=== PATIENT | female | born 1970 | race Caucasian/White ===

== ENCOUNTER 2018-11-30 15:21 | Inpatient (IN) | payer MEDICAID ==
[~2018-11-30] VITALS: Ht 154.9 cm; Wt 68.0 kg
[2018-11-30 15:43] VITALS: BP 95/61
[2018-11-30] MEDS ORDERED: ACETAMINOPHEN EXTRA STRENGTH 500 MG TAB PO ONE (15:50)
[2018-11-30] MEDS ORDERED: ACETAMINOPHEN EXTRA STRENGTH 500 MG TAB ONE (16:00)
[2018-11-30] MEDS ORDERED: NACL 0.9% 2,000 ML IV SCH (17:12)
[2018-11-30] MEDS ORDERED: VANCOMYCIN 1,000 MG in DEXTROSE 5% 250 ML IV ONE (17:15)
[2018-11-30] MEDS ORDERED: LEVOFLOXACIN 500 MG/D5W PREMIX 100 ML IV ONE (17:15)
--- NOTE | 2018-11-30 17:19 | NUR ---
C/O FEVER, N/V/D , AND COUGH X4 DAYS, 10/10 ACHING PAIN AT THIS TIME THROUGHOUT ENTIRE BODY . ADVENTITIOUS LUNG SOUNDS ON AUSCULTATION.SKIN IS PINK/WARM/DRY; AAOX4 WITH EVEN AND STEADY GAIT; HEART RATE EVEN WITH MILD TACHYCARDIA; 02 SAT 80, PT PLACED ON 5LPM NC RESULTING IN 02 SAT 96%.PATIENT POSITIONED FOR COMFORT; HOB ELEVATED; BEDRAILS UP X1; BED DOWN. ER MD MADE AWARE OF PT STATUS.
--- NOTE | 2018-11-30 17:30 | NUR ---
1st blood culture collected
--- NOTE | 2018-11-30 17:45 | NUR ---
2nd blood culture drawn
[2018-11-30] MEDS ORDERED: VANCOMYCIN 1,000 MG VIAL ONE (17:50)
--- NOTE | 2018-11-30 18:00 | NUR ---
OFFERED PT BEDPAN, PT VOID 400 CC
[2018-11-30 18:08] LABS: HEMATOCRIT 39.4 % (36-48); HEMOGLOBIN 13.2 g/dL (12.0-16.0); MEAN CORPUSCULAR HEMOGLOBIN 31 pg (27-31); MEAN CORPUSCULAR HGB CONC 34 g/dL (33-37); MEAN CORPUSCULAR VOLUME 92.2 fL (80-94); PLATELET COUNT (AUTO) 290 K/uL (140-450); RED BLOOD CELL COUNT(AUTO) 4.28 MIL/uL (4.20-5.40); WHITE BLOOD COUNT (AUTO) 10.5 K/uL (4.8-10.8)
[2018-11-30 18:16] LABS: ACETONE, SERUM NEGATIVE (NEGATIVE)
[2018-11-30 18:21] LABS: ANION GAP 13.5 (8-16); CARBON DIOXIDE 24.8 mmol/L (21-32); CREATININE 0.9 mg/dL (0.6-1.3); POTASSIUM 3.3 mmol/L (3.5-5.1)
[2018-11-30 18:24] LABS: PROTHROMBIN TIME 10.7 secs (10.8-13.4)
[2018-11-30 18:25] LABS: MAGNESIUM 1.5 mg/dL (1.8-2.4)
[2018-11-30 18:27] LABS: ALBUMIN 2.3 g/dL (3.4-5.0); TOTAL BILIRUBIN 0.6 mg/dL (0.0-1.0)
[2018-11-30 18:28] LABS: LYMPHOCYTES % (MANUAL) 9 % (20-46); MONOCYTES % (MANUAL) 4 % (5-12)
[2018-11-30] MEDS: NACL 0.9% 1,000 ML IV SCH (18:45)
[2018-11-30] MEDS ORDERED: ZOLPIDEM 5 MG TAB PO PRN (18:45)
[2018-11-30] MEDS ORDERED: MORPHINE SULFATE 2 MG/ML SYR IVP PRN (18:45)
[2018-11-30] MEDS ORDERED: VANCOMYCIN PER PHARMACY MC PRN (18:50)
[2018-11-30] MEDS ORDERED: SYN.075 PO (19:36)
[2018-11-30] MEDS ORDERED: MONT10TA35 PO (19:36)
[2018-11-30] MEDS ORDERED: GABA400C PO (19:36)
[2018-11-30] MEDS ORDERED: DULO60EC PO (19:36)
--- NOTE | 2018-11-30 19:45 | NUR ---
RECEIVED REPORT FROM KAREN HAYNES DAYSHIFT NURSE AT BEDSIDE FOR CONTINUITY OF CARE, PT IN STABLE CONDITION. PT TRANSFERRED TO FLOOR VIA GURNEY AND WAS TRANSFERRED TO ROOM 120B. PT IS AOX4 AND IS ON 15 LITERS REBREATHER MASK. SKIN INTACT, PT C/O GENERALIZED WEAKNESS. SHE IS ABLE TO AMBULATE WITH ASSIST. SIDE RAILS X2 AND PT PLACED ON FALLS PRECAUTIONS. V/S FOLLOWS T 97.5 P 111 R 18 B/P 114/69 02 97% ON REBREATHER. PT HAS HX OF ASTHMA, THYROIDECTOMY, GALLBLADDER REMOVAL AND TUBAL LIGATION. PT LUNG SOUNDS COARSE AND DIMINISHED. B/S ACTIVE. HOB UP 45% AND IV SITE 20G ON RIGHT AC. INTACT AND BOLUS FINISHING UP.
--- NOTE | 2018-11-30 19:47 | NUR ---
Patient will be admitted to care of KARLENE. Admited to TELE 120B. Belongings list completed. PATIENT A&O X4 AND AMBULATED TO BED. Report GIVEN to KARLENE.
[2018-11-30] MEDS ORDERED: POTASSIUM CHLORIDE 10 MEQ TABER PO SCH (20:00)
[2018-11-30] MEDS ORDERED: MAG SULF 2000 MG/WATER PREMIX 100 ML IV SCH (20:00)
[2018-11-30 20:05] LABS: MAGNESIUM 1.5 mg/dL (1.8-2.4); PHOSPHORUS 1.9 mg/dL (2.5-4.9); THYROID STIMULATING HORMONE 21.13 uIU/mL (0.34-3.74)
[2018-11-30] MEDS ORDERED: MIRT15TA PO (20:15)
[2018-11-30] MEDS: ALBUTEROL SULFATE/IPRATROPIU 3 ML SOL IH PRN (20:25)
[2018-11-30] MEDS: LORazepam 2 MG/ML VIAL IM/IVP PRN (20:44)
--- NOTE | 2018-11-30 21:00 | NUR ---
SPUTUM CULTURE COLLECTED. NACL ORDERED AT 60MLS/HR. PT GIVEN K DUR 40MEQ AND MAG RIDER. CONSENT SIGNED FOR ANGIOGRAM OF CHEST WITH AND WITH OUT CONTRAST.
[2018-11-30] MEDS: MIRTAZAPINE 15 MG TAB PO SCH (21:28)
[2018-11-30] MEDS: PROMETH/CODEINE 6.25-10MG/5ML 5 ML UDC PO PRN (21:29)
--- NOTE | 2018-11-30 21:30 | NUR ---
RT AT BEDSIDE, EVALUATING PT. PT GIVEN NEB TREATMENT AND PLACED ON 10 LITERS OXYMIZER, AND TO KEEP PT STATING AT 88-92%.
--- NOTE | 2018-11-30 22:00 | NUR ---
PT TRANSPORTED FOR ANGIO GRAM AND HAS RETURNED AWAITING RESULTS OF TEST.
[2018-11-30] MEDS ORDERED: VANCOMYCIN 500 MG in NACL 0.9% 100 ML IV SCH (22:30)
[2018-11-30] MEDS ORDERED: VANCOMYCIN 500 MG VIAL ONE (23:43)
[2018-12-01] VITALS (84 sets, daily range): BP systolic 82–174; BP diastolic 31–121
[2018-12-01] MEDS: ALBUTEROL SULFATE/IPRATROPIU 3 ML SOL IH PRN (00:27)
--- NOTE | 2018-12-01 01:00 | NUR ---
Called to bedside to check patient desaturating, found patient tachycardic with spo2 87% on 10lpm oximizer, gave prn hhn tx and increased to 12 lpm oximizer, spo2 88%. coarse rales on right lobe, pt sleeping now, Dr Rodriguez aware of patient status, no new orders at this time, will cont to monitor.
[2018-12-01] MEDS ORDERED: NACL 0.9% 1,000 ML IV ONE ×3 (02:25→11:00)
[2018-12-01] MEDS: MORPHINE SULFATE 2 MG/ML SYR IVP PRN ×2 (02:33→07:49)
[2018-12-01] MEDS: LORazepam 2 MG/ML VIAL IM/IVP PRN ×2 (02:55→14:43)
[2018-12-01 03:04] LABS: BILIRUBIN,URINE NEGATIVE (NEGATIVE); BLOOD, URINE NEGATIVE (NEGATIVE); COLOR,URINE YELLOW (YELLOW); LEUKOCYTE ESTERASE ,URINE NEGATIVE (NEGATIVE); NITRITE, URINE NEGATIVE (NEGATIVE); UGLUCOSE NEGATIVE (NEGATIVE)
[2018-12-01] MEDS ORDERED: LEVOTHYROXINE SODIUM 100 MCG VIAL IV SCH (03:05)
[2018-12-01 03:09] LABS: APPEARANCE,URINE SLIGHTLY HAZY (CLEAR)
[2018-12-01 03:10] LABS: RBC,URINE 0-5 /HPF (0-5)
[2018-12-01 03:11] LABS: BARBITURATE, URINE NEGATIVE ng/ml (NEG <=200); BENZODIAZEPINE, URINE NEGATIVE ng/mL (NEG <=200); CANNABINOID, URINE NEGATIVE ng/mL (NEG <=50); COCAINE, URINE NEGATIVE ng/mL (NEG <=300)
[2018-12-01 03:12] LABS: OPIATE, URINE NEGATIVE ng/mL (NEG <=2000); PHENCYCLIDINE SCREEN,URINE NEGATIVE ng/mL (NEG <=25)
--- NOTE | 2018-12-01 03:25 | NUR ---
PT PLACED ON BIPAP DUE TO INCREASED WOB AND SPO2 DECREASING TO 85%. BIPAP SETTINGS 10/5, R10 AND FIO2 60%. BIPAP ALARMS ON AND FUNCTIONING. PROTECTA GEL PLACED UNDER MASK FOR SKIN PROTECTION. PHYSICIAN MADE AWARE OF PT STATUS AND BIPAP SETTINGS. WILL CONTINUE TO MONITOR.
[2018-12-01] MEDS ORDERED: LEVOTHYROXINE 0.075 MG TAB PO SCH (03:50)
--- NOTE | 2018-12-01 04:01 | NUR ---
PT REMOVED FROM BIPAP PER DUE TO PT BECOMING AGITATED, ANXIOUS AND NOT TOLERATING BIPAP. PLACED ON NRB PHYSICIAN AWARE. PT STATES SHE DOES NOT WANT TO WEAR BIPAP ANYMORE. WILL CONTINUE TO MONITOR.
[2018-12-01] MEDS: LEVOTHYROXINE 0.075 MG TAB PO SCH (04:04)
--- NOTE | 2018-12-01 04:06 | NUR ---
SYNTHRIOID 0.075MG STAT ADMINISTERED PER DR. ALVARADO ORDER.
[2018-12-01] MEDS ORDERED: LORazepam 2 MG/ML VIAL IM/IVP PRN ×2 (04:10→17:40)
[2018-12-01] MEDS ORDERED: KETOROLAC 30 MG/ML VIAL IM PRN (04:40)
[2018-12-01] MEDS ORDERED: DILTIAZEM 25 MG/5 ML VIAL IVP ONE ×2 (04:45→05:00)
[2018-12-01] MEDS: ACETAMINOPHEN 325 MG TAB PO PRN ×3 (04:49→22:48)
--- NOTE | 2018-12-01 05:00 | NUR ---
PT BECAME VERY AGITATED AND WANTED TO GO HOME , SHE STARTED TAKING OFF MASK AND WAS TALKING ABOUT CALLING HER SOON TO PICK HER UP. PT V/S FOLLOWS T 105 B/P P 158 R 40 02 83% ON ROOM AIR. SON CALLED AND HE SPOKE WITH MOM AND DOCTOR AND TOLD HIS MON THAT SHE SHOULD STAY AND RECEIVE TXTMENT. PT VERBALIZED UNDERSTANDING, BUT CONTINUED TO REFUSE 02. PT WAS GIVEN TYLENOL 650 MG AND TORADOL IVP, PT REFUSED COOLING MEASURES. PT GIVEN CARDIZEM FOR INCREASED HEART RATE. PT ASSIST TO TOILET, SHE CONTINUE TO REFUSE SUPPLIMETAL 02.0 STAFF AT BEDSIDE ASSISTING HER, TO KEEP 02 ON
--- NOTE | 2018-12-01 05:20 | NUR ---
PT TRANSFERRED TO ICU FOR CLOSER MONITORING. REPORT GIVEN TO ICU STAFF NURSE AT BEDSIDE FOR CONTINUITY OF CARE .
[2018-12-01] MEDS ORDERED: diphenhydrAMINE 50 MG/ML VIAL IVP ONE (05:25)
[2018-12-01] MEDS ORDERED: ETOMIDATE 20 MG/10 ML VIAL IVP ONE ×2 (05:25→09:49)
[2018-12-01] MEDS ORDERED: HALOPERIDOL IM 5 MG/ML VIAL IM ONE (05:25)
[2018-12-01] MEDS ORDERED: LORazepam 2 MG/ML VIAL IM/IVP ONE (05:25)
--- NOTE | 2018-12-01 05:31 | NUR ---
PT ARRIVE IN ICU 0520 [address]SPELTIE AND MST [place] SOLER AT BEDSIDE. PT CONFUSED/AGITATED UPON ARRIVAL. DOES NOT FOLLOW COMMANDS.PT IS ON OXYGEN/NON-REBREATHER MASK. RR 40, BP 141/88, HR IN 137-140'S. PT ABLE TO TRANSFER HERSELF TO ICU BED. DR ALVARADO AND DR GUNTER AT BEDSIDE TO INTUBATE.
[2018-12-01] MEDS ORDERED: SUCCINYLCHOLINE CHLORIDE 200 MG/10 ML VIAL IVP ONE ×2 (05:35→09:50)
[2018-12-01] MEDS ORDERED: HALOPERIDOL IM 5 MG/ML VIAL ONE (05:37)
[2018-12-01] MEDS: PROPOFOL 1000 MG/100 ML PREMIX 100 ML IV PRN ×4 (05:40→22:49)
--- NOTE | 2018-12-01 05:40 | NUR ---
ASSISTED DURING INTUBATION. PT INTUBATED WITH A 7.5 ETT AND SECURED @23 TEETH/GUMS. ETT PLACEMENT CONFIRMED WITH CAPNOGRAPHY AND BILATERAL BREATH SOUNDS. WILL FOLLOW UP WITH CXR. PT TO BE PLACED ON VENT SETTINGS AC 12, VT 450, PEEP 5 AND FIO2 100%.
[2018-12-01] MEDS ORDERED: PROPOFOL 1000 MG/100 ML PREMIX 100 ML IV ONE (05:47)
[2018-12-01] MEDS ORDERED: VANCOMYCIN 500 MG in NACL 0.9% 100 ML IV SCH (06:00)
[2018-12-01] MEDS: ALBUTEROL SULFATE/IPRATROPIU 3 ML SOL IH SCH ×3 (06:00→18:42)
--- NOTE | 2018-12-01 06:00 | NUR ---
DR. CORTEZW AT BEDSIDE TO INTUBATE, RT AT BEDSIDE TO GIVE GIVING RESCUE BREATHES AND PROVIDING UP SUCTION. (0529)[id number] 20MG GIVEN TO IVP TO RIGHT AC, (0532) 20MG SUCCHYCHOLINE GIVEN IVP, (0534) INTUBATION COMPLETED AND XRAY PRESENT AT HUNTER (0540) PT STARTED ON PROPOFOL DRIP AND XRAY PRESENT AT BEDSIDE TO CONFIRM PLACEMENT. 2MG ATIVAN GIVEN IVP. (0550) NEW 20 GAUGE PIV ON RIGHT WRIST INSERTED INFUSING NS AT 90CC/HR. PT ON TRACH TO VENT UGT2=651%, RX=003, RR=12, FLOW 40L/MIN, PEEP=5. ST ON DESIGN AGENT, HR 120-130, SKIN IS INTACT/NORMAL IN COLOR. BOWEL SOUND ACTIVE X4, NO GT IN PLACE. HOB ELEVATED ABOVE 30 DEG, PT 1 EPISODE VOIDING, UNABLE TO MEASURE, NO GT, NO CHANDLER IN PLACE. NO BM AT THIS TIME. DRY WEIGHT FOR PROPOFOL DRIP : 57kg.
--- NOTE | 2018-12-01 06:19 | NUR ---
ETT REMAINS SECURE WITH A PATENT AIRWAY. VENT ALARMS ON AND FUNCTIONING.
--- NOTE | 2018-12-01 06:20 | NUR ---
rec'd pt on carescape vent settings ac12 vt450 peep 5 fio2 100% alarms on and audible and ambu bag is at side of vent and vent is plugged into red outlet, no hhn given due to high heart of 127 b\s are coarse bilaterally and sxn pt no return of secretions, pt is orally intubated with 7.5 et tube secured with anchor fast at 23 cm at lip in midline pt is sedated.
--- NOTE | 2018-12-01 06:31 | NUR ---
CALLED HER SON ANANDA HARRY AT [phone] AND LEFT MESSAGE FOR HIM THAT WE TRANSFER HIS MOM TO ICU UNIT BED 2.
[2018-12-01] MEDS: NACL 0.9% 1,000 ML IV SCH ×2 (06:58→20:14)
[2018-12-01 07:03] LABS: BASOPHILS % (AUTO) 0.4 % (0.0-2.0); HEMATOCRIT 35.4 % (36-48); HEMOGLOBIN 11.9 g/dL (12.0-16.0); LYMPHOCYTES # (AUTO) 0.4 K/uL (2.5-16.5); LYMPHOCYTES % (AUTO) 4.8 % (20.5-51.1); MEAN CORPUSCULAR HEMOGLOBIN 31 pg (27-31); MEAN CORPUSCULAR HGB CONC 34 g/dL (33-37); MEAN CORPUSCULAR VOLUME 91.6 fL (80-94); MONOCYTES # (AUTO) 0.3 K/uL (0.8-1.0); MONOCYTES % (AUTO) 2.7 % (1.7-9.3); NEUTROPHILS # (AUTO) 8.5 K/uL (1.8-7.7); NEUTROPHILS % (AUTO) 92.1 % (42.2-75.2); PLATELET COUNT (AUTO) 275 K/uL (140-450); RED BLOOD CELL COUNT(AUTO) 3.86 MIL/uL (4.20-5.40); RED CELL DISTRIBUTION WIDTH 14.7 % (11.6-13.7); WHITE BLOOD COUNT (AUTO) 9.3 K/uL (4.8-10.8)
[2018-12-01] MEDS ORDERED: POTASSIUM PHOSPHATE 15 MM in NACL 0.9% 250 ML IV ONE (07:15)
[2018-12-01] MEDS ORDERED: VANCOMYCIN PER PHARMACY MC PRN (07:20)
--- NOTE | 2018-12-01 07:20 | NUR ---
GAVE BEDSIDE REPORT TO MORNING SHIFT GONZÁLEZ HAYNES. Addendum: 12/01/18 at 0753 by Roselyn Menesse RN ENDORSED CELLPHONE AT BEDSIDE AND BELONGING TO MORNING SHIFT GONZÁLEZ HAYNES.
--- NOTE | 2018-12-01 07:21 | NUR ---
RECEIVED REPORT FROM NIGHT RN. PATIENT JUST INTUBATED AND ON SOFT RESTRAINTS BILATERAL WRISTS. PATIENT'S FAMILY MADE AWARE OF THESE UPDATES BY PHONE ACCORDING TO NIGHT RN(ABDIAS) REPORT
[2018-12-01] MEDS: COMMUNICATION ORDER MC SCH (07:30)
--- NOTE | 2018-12-01 07:30 | NUR ---
RECEIVED REPORT FROM NIGHT RN. PATIENT INTUBATED 7.5 23 IN THE LIP ON MECHANICAL VENTILATOR AC 12 FIO2 100% TIDAL VOLUME 450, PEEP 5, ON DIPRIVAN RUNNING AT 30 MCG/KG/MIN., WEIGHT ENTERED ON PUMP 57 KGS., SINUS TACHYCARDIA IN THE MONITOR (SEE VITAL SIGNS INTERVENTION), WITH GAUGE 20s AT RIGHT HAND-NORMAL SALINE 90 ML/HR INFUSING AND RIGHT ANTECUBITAL, SKIN INTACT
[2018-12-01 07:33] LABS: ANION GAP 14.3 (8-16); CARBON DIOXIDE 20.1 mmol/L (21-32); CREATININE 0.8 mg/dL (0.6-1.3); POTASSIUM 3.4 mmol/L (3.5-5.1)
--- NOTE | 2018-12-01 07:40 | NUR ---
several attempts to obtain abg were made could not obtain at this time due to low bp
[2018-12-01 07:43] LABS: CHOL/HDL RATIO 3.7 (1-4.5)
--- NOTE | 2018-12-01 07:45 | NUR ---
LEAKING IN THE ET TUBE PER RT GERDA AND ET TUBE NEEDS TO BE CHANGED ACCORDING TO HER. SO2 >90% WILL CONTINUE TO MONITOR
[2018-12-01] MEDS: ONDANSETRON 4 MG/2 ML VIAL IM/IVP PRN (07:48)
--- NOTE | 2018-12-01 08:48 | NUR ---
DR. MCFADDEN AT BEDSIDE. PER DR. MCFADDEN OK TO INCREASE DIPRIVAN TO MAXIMUM PATIENT IS AWAKE WITH VOICE AND REACHES THE TUBE. RECEIVED ORDERS FOR PRE INTUBATION ALSO
--- NOTE | 2018-12-01 08:50 | NUR ---
DR. MCFADDEN REINTUBATED PATIENT. PATIENT ON NS BOLUS 1L DUE TO DECREASED BLOOD PRESSURE(SEE VS INTERVENTIONS) ORDERED BY DR. MCFADDEN
--- NOTE | 2018-12-01 08:51 | NUR ---
AT BEDSIDE TO REINTUBATE PT WITH 7.5 ET TUBE SECURED AT 23 CM AT LIP
[2018-12-01] MEDS ORDERED: GABAPENTIN 100 MG CAP PO SCH (09:00)
--- NOTE | 2018-12-01 09:20 | NUR ---
OG TUBE INSERTION DONE. AUSCULATATED BY 2 RNS ( [facility] ICU CN AND I) AND BOTH VERIFIED IT PATENT
[2018-12-01] MEDS: MONTELUKAST SODIUM 10 MG TAB PO SCH (09:33)
[2018-12-01] MEDS: GABAPENTIN 100 MG CAP PO SCH ×3 (09:34→17:55)
[2018-12-01] MEDS: DULoxetine 30 MG CAPDR PO SCH (09:49)
--- NOTE | 2018-12-01 10:00 | NUR ---
called to icu bed 2 due to pt's o2 sat of 85% i sxn pt small amt of blood tint secretions, called and spoke with him concerning the pt, he said to keep o2 sat 88-90% and if pt continues to desat call when i left pt her o2 sat was 91% darrin deng at bedside
--- NOTE | 2018-12-01 10:20 | NUR ---
DR. GARCIA AT BEDSIDE AND AWARE OF PATIENT'S VITAL SIGNS TRENDS. MAY GIVE 1 LITER NORMAL SALINE BOLUS IV
[2018-12-01] MEDS: MIDAZOLAM MDV 50 MG in NACL 0.9% 40 ML IV PRN ×2 (10:23→18:06)
--- NOTE | 2018-12-01 10:45 | NUR ---
CHANDLER CATHETER INSERTION DONE PER PROTOCOL. ORDER VERIFIED
[2018-12-01] MEDS: VANCOMYCIN 750 MG in DEXTROSE 5% 250 ML IV SCH (12:34)
[2018-12-01] MEDS ORDERED: KCL 20 MEQ/WATER INJ PREMIX 200 ML IV ONE (12:40)
[2018-12-01] MEDS ORDERED: PANTOPRAZOLE 40 MG INJ VIAL IVP SCH (12:47)
--- NOTE | 2018-12-01 13:00 | NUR ---
vent check, sxn pt small amt of blood tint secretions, pt is very irritable at this time
--- NOTE | 2018-12-01 13:30 | NUR ---
DR. ALMENDAREZ, DR. CARMONA INFORMED PATIENT'S CONDITION UNSTABLE FOR CT SCAN AT THIS TIME SO2 88% ON FIO2 100%, LABILE BLOOD PRESSURE AFTE 2L NORMAL SALINE BOLUS, TACHYCARDIC UP TO 130s. HOLD CT HEAD FOR NOW. RT GERDA ALSO IN AGREEMENT AND AWARE
[2018-12-01] MEDS: fentaNYL 1 MG in NACL 0.9% 80 ML IV PRN (13:31)
--- NOTE | 2018-12-01 14:00 | NUR ---
URINE SAMPLE SENT FOR ORDERED TESTS
--- NOTE | 2018-12-01 14:10 | NUR ---
DR. ALMENDAREZ AT BEDSIDE. PER PHYSICIAN OK TO HOLD CT HEAD FOR NOW. PATIENT SO2 88% HEART RATE 130s, ON BILATERAL WRIST RESTRAINTS, DIPRIVAN MAXIMUM RATE AND FENTANYL STARTED, PATIENT THRASHING AND IN BETWEEN TRIES TO SLIDE SOWN IN BED AND PULL THE ET TUBE, PATIENT BEING RE ORIENTED FREQUENTLY. DR. ALMENDAREZ MADE AWARE
--- NOTE | 2018-12-01 14:57 | NUR ---
PAGED DR. MCFADDEN THROUGH HIS EXCHANGE REGARDING: PATIENT'S SATURATION DROPPED
--- NOTE | 2018-12-01 15:01 | NUR ---
DR. MCFADDEN CALLED BACK AND RECEIVED TELEPHONE ORDER TO INCREASE PEEP TO 12-READ BACK AND INFORMED RT GERDA Addendum: 12/01/18 at 1512 by Keira Johnson RN (ADDITIONAL NOTES) [address] MCFADDEN ALSO MADE AWARE THE SATURATION NOW IS 80%. ASKED PHYSICIAN ALSO IF HE WANTS TO CHECK ABG LATER AND "NO" ACCORDING TO PHYSICIAN
--- NOTE | 2018-12-01 16:15 | NUR ---
DR. CARMONA AT BEDSIDE SPOKE WITH DR. MCFADDEN CONCERNING VENT CHANGES INCREASE VT 500 AND PEEP 14
--- NOTE | 2018-12-01 16:25 | NUR ---
DR. CARMONA AT BEDSIDE AND HE UPDATED DR. MCFADDEN OVER THE PHONE OF PATIENT'S CONDITION
[2018-12-01] MEDS ORDERED: FUROSEMIDE 100 MG/10 ML VIAL IV SCH (16:30)
--- NOTE | 2018-12-01 17:00 | NUR ---
DR. CARMONA HERE AND INFORMED ORDERED LASIX NOT YET GIVEN DUE TO: PATIENT'S BP LOW SYSTOLIC IN THE 90s, ALSO IT IS NOT YET VERIFIED BY AFTER HOUR PHARMACY NOT POPPING UPA AND PINK IN THE EMAR AND THIS RN LEFT A MESSAGE IN THEIR VOICE BOX. PER DR. CARMONA PREPARE PATIENT FOR CENTRAL LINE INSERTION. WILL HOLD OFF ON DUE GABAPENTIN CAPSULE FOR NOW
[2018-12-01] MEDS: SCOPOLAMINE 1.5 MG/72 HR PATCH TD SCH (17:56)
--- NOTE | 2018-12-01 18:00 | NUR ---
DR. CARMONA ATTEMPTED TO CALL PATIENT'S SON ANANDA TO GET CONSENT FOR CENTRAL LINE INSERTION BUT NO ANSWER. DR. CARMONA LEFT A MESSAGE IN THE VOICE BOX
[2018-12-01 18:46] LABS: HEMATOCRIT 34.1 % (36-48); HEMOGLOBIN 11.5 g/dL (12.0-16.0); MEAN CORPUSCULAR HEMOGLOBIN 31 pg (27-31); MEAN CORPUSCULAR HGB CONC 34 g/dL (33-37); MEAN CORPUSCULAR VOLUME 91.6 fL (80-94); PLATELET COUNT (AUTO) 255 K/uL (140-450); RED BLOOD CELL COUNT(AUTO) 3.73 MIL/uL (4.20-5.40); RED CELL DISTRIBUTION WIDTH 14.9 % (11.6-13.7); WHITE BLOOD COUNT (AUTO) 7.6 K/uL (4.8-10.8)
[2018-12-01 18:52] LABS: ANION GAP 10.7 (8-16); CREATININE 0.7 mg/dL (0.6-1.3); POTASSIUM 4.7 mmol/L (3.5-5.1)
--- NOTE | 2018-12-01 18:57 | NUR ---
Received pt on vent support at documented settings, suctioned scant amount of thick brown secretions, hhn tx given, tolerated well, no resp distress or SOB noted at this time, 7.5 ETT secured at 24 cm at the lip, alarms set and audible, vent plugged into red outlet, ambu bag at bedside, cont pulse ox on, will cont to monitor.
--- NOTE | 2018-12-01 19:05 | NUR ---
INFORMED DR. HAGER THAT LASIX STILL NOT GIVEN IT IS NOT VERIFIED BY PHARMACY YET AND BP ALSO LOW, NS 70 CC/HR. PER DR. BABCOCK AND NEEDS ORDER
--- NOTE | 2018-12-01 19:30 | NUR ---
CHARGE NURSE, STAR, CONTACT FAMILY MEMBERS OF PT/CHILDREN (ANANDA AND ARMANDO) UPDATED ON PATIENT CONDITION AND RECEIVED VERBAL TELEPHONE CONSENT TO PERFORM CENTRAL LINE, ENDORSED TO DR. ALVARADO TO FOLLOW-UP WITH FAMILY REGARDING PROCEDURE.
--- NOTE | 2018-12-01 19:35 | NUR ---
RECEIVED BEDSIDE REPORT FROM [place] CLAUDIO. PT IS NONVERBAL/VENTILATED AT THIS TIME. DOES NOT OPENS EYES SPONTANEOUSLY. PUPILS 2MM, SLUGGISH. TEMP 99.8, AT THIS TIME. BP 108/61, BP=589, SATING 91%, RR=24. LUNG SOUNDS COARSE ON UPPER LOBES. ETT TO VENT, HY76=646%, JC=724, RR=12, FLOW=40L/MIN, PEEP=14,PMAX=55. OGT IN PLACE, NO FEEDINGS AT THIS TIME. BOWEL SOUND HYPO ACTIVE X4. CHANDLER CATH IN PLACE, URINE IS ELLEN IN COLOR. SKIN IS INTACT, NORMAL IN COLOR. PT HAS RIGHT WRIST 20 GAUGE PIV, RIGHT AC 20 GAUGE PIV INFUSING FENTANYL ( 28MCG/HR), VERSED (5MG/HR) AND PROPOPFOL (35MCG/MIN), AND LEFT HAND 20 GAUGE PIV. NS INFUSING AT 70CC/HR. SCDS ON BILATERAL LEGS. HOB ABOVE 30 DEG, RESTRAINTS ON BILATERAL WRISTS. Addendum: 12/02/18 at 0014 by Roselyn Meneses RN DRY WEIGHT IS 57kg, FOR TITRATION OF PROPOFOL.
--- NOTE | 2018-12-01 19:45 | NUR ---
CALL PATIENT DAUGHTER ESTRADA LINDSAY , OBTAIN THEB CONSENT FOR CENTRAL LINE INSERTION.
--- NOTE | 2018-12-01 20:00 | NUR ---
THE SON ANANDA HARRY CALL TO CHECK PT. CONDITION. HE AWARE THAT THE PATIENT WILL HAVE CENTRAL LINE PLACEMENT.
[2018-12-01] MEDS ORDERED: LORazepam 2 MG/ML VIAL IVP SCH (21:00)
[2018-12-01] MEDS ORDERED: HYDROmorphone 1 MG/ML AMP IVP SCH (21:00)
[2018-12-01] MEDS: MIRTAZAPINE 15 MG TAB PO SCH (21:00)
[2018-12-01] MEDS: methylPREDNISolone SS 125 MG/2 ML VIAL IVP SCH (21:19)
[2018-12-01 21:44] LABS: LYMPHOCYTES % (MANUAL) 4 % (20-46); MONOCYTES % (MANUAL) 1 % (5-12)
--- NOTE | 2018-12-01 22:02 | NUR ---
2150 ULTRASOUND AT BEDSIDE TO ASSIST IN CENTRAL LINE PLACEMENT TO RIGHT IJ TRIPLE LUMEN CATH. STERILE TECHNIQUE MAINTAINED. 2202 CENTRAL LINE INSERTED.
--- NOTE | 2018-12-01 22:22 | NUR ---
DR ALVARADO AT BEDSIDE, VERBAL ORDER TO HOLD REMERON (INDICATED SLEEP MED) AND HEPARIN SUQ 5000, PT CURRENTLY HAS SCDS ON BILATERAL LEGS, NO SIGNS OF DVT AT THIS TIME.
--- NOTE | 2018-12-01 22:24 | NUR ---
CENTRAL LINE HAS BEEN INSERTED, XRAY AT BEDSIDE TO CONFIRM PLACEMENT.
--- NOTE | 2018-12-01 22:50 | NUR ---
TEMP 101.0 TEMPORAL SCAN, TYLENOL GIVEN AT THIS TIME.
[2018-12-02] VITALS (101 sets, daily range): BP systolic 88–106; BP diastolic 33–69
--- NOTE | 2018-12-02 | NUR ---
TEMP 98.3: REASSESSED AFTER TYLENOL AND ICE PACK GIVEN TO PT.
[2018-12-02] MEDS: VANCOMYCIN 750 MG in DEXTROSE 5% 250 ML IV SCH ×3 (00:09→20:19)
--- NOTE | 2018-12-02 03:33 | NUR ---
BED BATH, CHANDLER CATH, VAP CARE PROVIDED TO PT AT BEDSIDE, RASS -3. REPOSITIONED AND ELEVATED HOB.
[2018-12-02] MEDS ORDERED: MAG SULF 2000 MG/WATER PREMIX 100 ML IV SCH (04:00)
[2018-12-02] MEDS: methylPREDNISolone SS 125 MG/2 ML VIAL IVP SCH ×3 (04:06→20:20)
[2018-12-02] MEDS: MIDAZOLAM MDV 50 MG in NACL 0.9% 40 ML IV PRN (04:08)
--- NOTE | 2018-12-02 05:29 | NUR ---
ANGEL FROM LAB AT BEDSIDE TO SEE PT, RT AT BEDSIDE TO COLLECT SPUTUM, PT HAS MINIMAL SPUTUM OUTPUT AT THIS TIME.
--- NOTE | 2018-12-02 05:38 | NUR ---
NO BM, URINE IS CLOUDY, DARK ELLEN IN COLOR, 450ML OUTPUT Q SHIFT.
[2018-12-02] MEDS: ALBUTEROL SULFATE/IPRATROPIU 3 ML SOL IH SCH ×3 (06:24→19:24)
--- NOTE | 2018-12-02 06:24 | NUR ---
REC'D PT ON CARESCAPE VENT SETTING AC 12 VT 500 PEEP 14 FIO1 100% ALARMS ON AND AUDIBLE AMBU BAG IS AT SIDE OF VENT AND VENT IS PLUGGED INTO RED OUTLET, I\L TX GIVEN WITH DUONEB 3ML WITH NO ADVERSE REACTION POST TX B\S ARE COARSE BILATERALLY AND SXN PT SCAN AMT OF BROWN SECRETIONS, PT IS ORALLY INTUBATED WITH 7.5 ET TUBE AT 24CM SECURED WITH ANCHOR FAST AND SKIN INTEGRITY IS INTACT PT IS SLEEPING
[2018-12-02] MEDS: LEVOTHYROXINE 0.075 MG TAB PO SCH (06:52)
[2018-12-02 06:58] LABS: ANION GAP 11.7 (8-16); CARBON DIOXIDE 21.9 mmol/L (21-32); CREATININE 0.6 mg/dL (0.6-1.3); POTASSIUM 4.6 mmol/L (3.5-5.1)
[2018-12-02] MEDS: COMMUNICATION ORDER MC SCH (07:00)
--- NOTE | 2018-12-02 07:00 | NUR ---
PT IS SEDATED WITH RASS -4, NO S/S OF DISTRESS, D/C PROPOFOL AT THIS TIME, WILL CONTINUE TO MONITOR.
[2018-12-02 07:01] LABS: BASOPHILS % (AUTO) 0.1 % (0.0-2.0); HEMOGLOBIN 11.3 g/dL (12.0-16.0); LYMPHOCYTES # (AUTO) 0.7 K/uL (2.5-16.5); LYMPHOCYTES % (AUTO) 9.4 % (20.5-51.1); MEAN CORPUSCULAR HEMOGLOBIN 31 pg (27-31); MEAN CORPUSCULAR HGB CONC 33 g/dL (33-37); MEAN CORPUSCULAR VOLUME 92.2 fL (80-94); MONOCYTES # (AUTO) 0.2 K/uL (0.8-1.0); MONOCYTES % (AUTO) 2.1 % (1.7-9.3); NEUTROPHILS # (AUTO) 6.7 K/uL (1.8-7.7); NEUTROPHILS % (AUTO) 88.4 % (42.2-75.2); PLATELET COUNT (AUTO) 241 K/uL (140-450); RED BLOOD CELL COUNT(AUTO) 3.69 MIL/uL (4.20-5.40); RED CELL DISTRIBUTION WIDTH 15.5 % (11.6-13.7); WHITE BLOOD COUNT (AUTO) 7.6 K/uL (4.8-10.8)
--- NOTE | 2018-12-02 07:15 | NUR ---
RECEIVED REPORT FROM ESCROW CLERK NURSE AT BEDSIDE, PT IS SEDATED, RASS -4, AWARE. VSS, FLACC 0, CENTRAL LINE TO RIJ, TLC, FLUSHED WITH GOOD BLOOD RETURN. ETT TO VENT SETTING WITH FIO2 100, TV 500, R 12, PEEP 14, O2 SAT 98%, CLEAR LUNG SOUND MARGOT. SR ON MEDICAL OFFICE CLERK, SOFT ABDOMEN WITH HYPOACTIVE BOWEL SOUNDS, OGT IN PLACE WITH 10ML RESIDUALS, F/C IN PLACE WITH CLEAR YELLOW URINE VIA GRAVITY, GENERALIZED WEAKNESS TO ALL EXTREMITIES, SCD TO BLE. SKIN IS INTACT, WARM AND DRY TO TOUCH, IV SITE TO RIGHT AC, 20GA, RUNNING VERSED AT 5MG/HR AND FENTANYL AT 28MCG/HR, SL TO RIGHT HAND, 20GA, IV SITE TO LEFT HAND, RUNNING NS AT 70ML/HR. HOB ELEVATED TO 30 DEGREES, SAFETY MEASURES IN PLACE, WILL CONTINUE TO MONITOR.
[2018-12-02] MEDS ORDERED: ALBUTEROL SULFATE/IPRATROPIU 3 ML SOL IH PRN (07:24)
--- NOTE | 2018-12-02 08:00 | NUR ---
PT IS ON SEDATION, RASS -3, NOT FULLING TUBES, OFF RESTRAINS AT THIS TIME. ORAL CARE PROVIDED, POSITION CHANGED FOR OFF LOAD PRESSURE.
--- NOTE | 2018-12-02 08:06 | NUR ---
DR. REAVES CAME IN TO SEE PT AT BEDSIDE, NO NEW ORDER AT THIS TIME.
--- NOTE | 2018-12-02 08:37 | NUR ---
PATIENT HAS BEEN SCREENED AND CATEGORIZED HIGH NUTRITION RISK. PATIENT WILL BE SEEN WITHIN 1-2 DAYS OF ADMISSION. 12/02/[address]
--- NOTE | 2018-12-02 08:40 | NUR ---
PT WAS TAKEN TO CT AT 0830, AND BACK 0840
--- NOTE | 2018-12-02 09:20 | NUR ---
US AT BEDSIDE.
--- NOTE | 2018-12-02 09:30 | NUR ---
SCHEDULED MEDICATION GIVEN VIA GT, PT TOLERATED WELL.
[2018-12-02] MEDS: DULoxetine 30 MG CAPDR PO SCH (09:32)
[2018-12-02] MEDS: PANTOPRAZOLE 40 MG INJ VIAL IVP SCH (09:32)
[2018-12-02] MEDS: MONTELUKAST SODIUM 10 MG TAB PO SCH (09:32)
[2018-12-02] MEDS: GABAPENTIN 300 MG CAP PO SCH ×3 (09:32→16:47)
--- NOTE | 2018-12-02 10:00 | NUR ---
NO S/S OF DISTRESS, VSS, FLACC 0, POSITION CHANGED FOR OFF LOAD PRESSURE.
--- NOTE | 2018-12-02 10:30 | NUR ---
ECHO AT BEDSIDE.
--- NOTE | 2018-12-02 12:00 | NUR ---
NO CHANGE OF CONDITION AT THIS TIME, VSS, FLACC 0, ORAL CARE PROVIDED, POSITION CHANGED FOR OFF LOAD PRESSURE.
--- NOTE | 2018-12-02 12:40 | NUR ---
DR. GARCIA CAME IN TO SEE PT AT BEDSIDE, WILL FOLLOW UP WITH NEW ORDERS.
[2018-12-02] MEDS: NACL 0.9% 1,000 ML IV SCH (13:08)
--- NOTE | 2018-12-02 13:20 | NUR ---
DR. STEPHEN CALLED. ABG RESULTS GIVEN. FI02 INCREASED TO 95% BY RT.
--- NOTE | 2018-12-02 13:20 | NUR ---
DALLAS OCONNELL SPOKE TO Vick HIDALGO CONCERNING ABG RESULTS ORDERED TO INCREASE FIO2 TO 95% RT. GARY INCREASED FIO2 TO 95%
--- NOTE | 2018-12-02 14:10 | NUR ---
12/02/18 RD INITIAL ASSESSMENT COMPLETED PLEASE REFER TO NUTRITION ASSESSMENT UNDER CARE ACTIVITY FOR ESTIMATED NUTRITIONAL NEEDS. 1. CONTINUE NPO MEDICALLY NECESSARY 2. ONCE PATIENT IS MEDICALLY STABLE AND ABLE TO START A PO DIET CONSIDER A SWALLOW EVALUATION 3. RD TO FOLLOW-UP 2-3 DAYS, HIGH RISK KATH CHANEL, CHAYA
--- NOTE | 2018-12-02 16:00 | NUR ---
NO S/S OF DISTRESS, VSS, FLACC 0, PM CARE AND F/C CARE PROVIDED, ORAL CARE PROVIDED, POSITION CHANGED FOR OFF LOAD PRESSURE.
[2018-12-02] MEDS: MIDAZOLAM MDV 100 MG in NACL 0.9% 80 ML IV PRN (16:13)
[2018-12-02] MEDS: fentaNYL 1 MG in NACL 0.9% 80 ML IV PRN (16:17)
--- NOTE | 2018-12-02 18:00 | NUR ---
NO CHANGE OF CONDITION AT THIS TIME, VSS, FLACC 0, POSITION CHANGED FOR OFF LOAD PRESSURE.
--- NOTE | 2018-12-02 19:13 | NUR ---
REPORT GIVEN TO SALES EFFECTIVENESS MANAGER NURSE FOR CONTINUE OF CARE, PT IS IN STABLE CONDITION AT THIS TIME.
--- NOTE | 2018-12-02 19:20 | NUR ---
RECEIVED BEDSIDE REPORT FROM MORNING NURSE, PATIENT SEDATED WITH RASS -3 WITH VERSED AND FENTANYL DRIP. ETT TO VENT WITH SETTING AC MODE RATE 12, FIO2 95%, VT 500, PEEP 14. NO ACUTE DISTRESS NOTED. FLACC 0. OGT IN PLACE, PLACEMENT CHECKED AND NO RESIDUAL NOTED. SR ON THE MONITOR WITH HR 95. BILATERAL LUNG SOUND CLEAR NOTED. NO FEVER. DIMINISHED BOWEL SOUND NOTED FROM ALL 4 QUADS. SKIN IS INTACT AND CLEAN. CENTRAL LINE TO RIGHT IJ TRIPLE LUMENS CATH NOTED. HOB ELEVATED. BED IN LOW POSITION, CALL LIGHT WITHIN REACH.
--- NOTE | 2018-12-02 19:38 | NUR ---
RCV'D PT INTUBATED WITH 7.5 ETT AT 25 CM AT LIP AND ON MECHANICAL VENTILATION WITH CHARTED SETTINGS. ETT IS IN PLACE AND SECURED WITH ANCHOR-FAST. ALARMS AUDIBLE. VENT IS CONNECTED TO RED OUTLET. AMBU BAG AT BEDSIDE. PT IS QUITE. HHN TX GIVEN WITH NO ADVERSE REACTION. NO SOB OR DISTRESS NOTED. WILL CONTINUE TO MONITOR.
--- NOTE | 2018-12-02 20:00 | NUR ---
I attempted to meet with Patient for a screen, Patient was asleep and unable to communicate with these movie writer. I attempted to contact Patient's son Cleve Vu at . No response. I was unable to leave him a voicemail MSG due to full voicemail.
[2018-12-02] MEDS: MIRTAZAPINE 15 MG TAB PO SCH (20:20)
--- NOTE | 2018-12-02 20:25 | NUR ---
ADMINISTERED SCHEDULED MEDICATIONS ORDERED. NO ACUTE RESPIRATORY DISTRESS. FLACC 0. TOLERATED WELL WITH VENT SETTINGS. SR ON THE MONITOR. WILL CONTINUE TO MONITOR.
--- NOTE | 2018-12-02 21:34 | NUR ---
DECREASED FIO2 TO 80%
[2018-12-03] VITALS (108 sets, daily range): BP systolic 91–115; BP diastolic 57–78
--- NOTE | 2018-12-03 | NUR ---
PATIENT SEDATED WITH VERSED AND FENTANYL DRIP, RASS -3 NOTED. NO ACUTE DISTRESS NOTED. FLACC 0. NO COUGH. WILL CONTINUE TO MONITOR.
--- NOTE | 2018-12-03 01:24 | NUR ---
DECREASED PT'S FIO2 TO 50%. RN AWARE. NO SOB OR DISTRESS NOTED. SPO2 100%. WILL CONTINUE TO MONITOR. Addendum: 12/03/18 at 0306 by Chico Hardwick RT WRONG PT.
[2018-12-03] MEDS: NACL 0.9% 1,000 ML IV SCH ×2 (02:08→12:50)
--- NOTE | 2018-12-03 02:30 | NUR ---
PATIENT SEDATED WITH VERSED AND FENTANYL DRIP, RASS -3. FLACC 0. NO ACUTE DISTRESS NOTED. TOLERATED WELL WITH VENT SETTING. WILL CONTINUE TO MONITOR.
--- NOTE | 2018-12-03 03:06 | NUR ---
DECREASED PT'S FIO2 TO 50%. RN AWARE. NO SOB OR DISTRESS NOTED. SPO2 100%. WILL CONTINUE TO MONITOR.
[2018-12-03] MEDS: VANCOMYCIN 750 MG in DEXTROSE 5% 250 ML IV SCH ×3 (04:33→20:06)
[2018-12-03] MEDS: methylPREDNISolone SS 40 MG/ML VIAL IVP SCH ×3 (04:34→20:10)
--- NOTE | 2018-12-03 04:40 | NUR ---
ADMINISTERED SCHEDULED MEDS ORDERED. FLACC 0. SEDATED WITH RASS -3. NO ACUTE DISTRESS NOTED. WILL CONTINUE TO MONITOR.
[2018-12-03 06:20] LABS: ANION GAP 11.7 (8-16); CARBON DIOXIDE 25.4 mmol/L (21-32); CREATININE 0.6 mg/dL (0.6-1.3); POTASSIUM 5.1 mmol/L (3.5-5.1)
[2018-12-03 06:22] LABS: BASOPHILS % (AUTO) 0.1 % (0.0-2.0); HEMATOCRIT 29.2 % (36-48); LYMPHOCYTES # (AUTO) 0.9 K/uL (2.5-16.5); LYMPHOCYTES % (AUTO) 8.7 % (20.5-51.1); MEAN CORPUSCULAR HEMOGLOBIN 31 pg (27-31); MEAN CORPUSCULAR HGB CONC 34 g/dL (33-37); MEAN CORPUSCULAR VOLUME 91.7 fL (80-94); MONOCYTES # (AUTO) 0.3 K/uL (0.8-1.0); MONOCYTES % (AUTO) 2.8 % (1.7-9.3); NEUTROPHILS # (AUTO) 8.8 K/uL (1.8-7.7); NEUTROPHILS % (AUTO) 88.4 % (42.2-75.2); PLATELET COUNT (AUTO) 224 K/uL (140-450); RED BLOOD CELL COUNT(AUTO) 3.19 MIL/uL (4.20-5.40); RED CELL DISTRIBUTION WIDTH 15.6 % (11.6-13.7)
[2018-12-03 06:24] LABS: MAGNESIUM 2.7 mg/dL (1.8-2.4); PHOSPHORUS 1.5 mg/dL (2.5-4.9)
[2018-12-03] MEDS: ALBUTEROL SULFATE/IPRATROPIU 3 ML SOL IH SCH ×3 (06:35→20:35)
--- NOTE | 2018-12-03 06:35 | NUR ---
REC'D PT ON CARESCAPE VENT SETTINGS AC12 VT 500 PEEP 14 FIO2 50% ALARMS ON AND FUNCTIONING PROPERLY, AMBU BAG IS AT SIDE OF VENT AND VENT IS PLUGGED INTO RED OUTLET,I\L TX GIVEN WITH DUONEB 3ML WITH NO ADVERSE REACTION POST TX B\S ARE COARSE BILATERALLY, SXN PT SMALL AMT OF CLEAR SECRETIONS, PT IS ORALLY INTUBATED WITH 7.5 ET TUBE SECURED WITH ANCHOR FAST AT 24 CM AT LIP PT IS SLEEPING
[2018-12-03] MEDS: LEVOTHYROXINE 0.075 MG TAB PO SCH (07:07)
--- NOTE | 2018-12-03 07:30 | NUR ---
RECEIVED BEDSIDE REPORT FROM ALMOND SORTER RN. PT IS SEDATED, RASS -3. FLACC 0, AFEBRILE. SINUS RHYTHM ON MONITOR. S1 +S2 HEARD. PT IS ETT TO VENT W/ SETTINGS: AC 12, FIO2 50%, VT 500, PEEP 14. LUNG SOUNDS CLEAR BILATERALLY. BREATHING EVEN BUT LABORED W/ ACCESSORY MUSCLES USE. OGT IN PLACE, PLACEMENT CONFIRMED. ABD SOFT, NONDISTENDED, NONTENDER W/ ACTIVE BOWEL SOUNDS. CENTRAL LINE TO RIGHT IJ ASYMPTOMATIC, PATENT AND INTACT, RUNNING IVF NS AT 70 ML/HR, FENTANYL DRIP AT 28 MCG/HR AND VERSED DRIP AT 5 MG/H. CHANDLER CATH IN PLACE DRAINING YELLOW URINE TO GRAVITY DRAINAGE BAG. SKIN IS INTACT, DRY AND WARM TO TOUCH. HOB 30 DEGREES, BED IN LOWEST POSITION AND CALL LIGHT WITHIN REACH. WILL CONTINUE TO MONITOR.
--- NOTE | 2018-12-03 08:00 | NUR ---
DR. MICHELLE AND RESIDENT GROUP IN TO SEE PT. DR. HUERTA MADE AWARE THAT CA=7.2, P = 1.5, MG = 2.7. WILL FOLLOW UP ON ORDERS.
--- NOTE | 2018-12-03 08:18 | NUR ---
CHEST X-RAY TAKEN. PT TOLERATED WELL.
[2018-12-03] MEDS ORDERED: SODIUM PHOS / POTASSIUM PHOS 1 PKT PDR NG SCH (09:00)
--- NOTE | 2018-12-03 09:10 | NUR ---
MEDICATIONS ADMINISTERED ORDERED. PT TOLERATED WELL.
[2018-12-03] MEDS: GABAPENTIN 300 MG CAP PO SCH ×3 (09:13→16:26)
[2018-12-03] MEDS: DULoxetine 30 MG CAPDR PO SCH (09:13)
[2018-12-03] MEDS: MONTELUKAST SODIUM 10 MG TAB PO SCH (09:13)
[2018-12-03] MEDS: PANTOPRAZOLE 40 MG INJ VIAL IVP SCH (09:13)
[2018-12-03] MEDS ORDERED: CLINICAL MONITORING MC PRN (09:40)
--- NOTE | 2018-12-03 12:00 | NUR ---
VAP ORAL CARE GIVEN. REPOSITIONED FOR COMFORT. PT TOLERATED WELL. SAFETY PRECAUTIONS IN PLACE. WILL CONTINUE TO MONITOR.
[2018-12-03] MEDS: MIDAZOLAM MDV 100 MG in NACL 0.9% 80 ML IV PRN ×2 (13:45→17:24)
--- NOTE | 2018-12-03 14:05 | NUR ---
NO CHANGE IN CONDITION AT THIS TIME. VSS. TURNED AND REPOSITIONED FOR COMFORT AND OFF LOAD PRESSURE.
[2018-12-03 15:12] LABS: HEPATITIS A ANTIBODY IGM Negative (Negative); HEPATITIS B CORE AB TOTAL Negative (Negative); HEPATITIS B SURFACE ANTIBODY Reactive (.); HEPATITIS B SURFACE ANTIGEN Negative (Negative)
--- NOTE | 2018-12-03 16:10 | NUR ---
PT IS AFEBRILE, VSS. VAP ORAL CARE GIVEN. REPOSITIONED FOR COMFORT. SAFETY PRECAUTIONS IN PLACE.
[2018-12-03] MEDS: fentaNYL 1 MG in NACL 0.9% 80 ML IV PRN (16:27)
--- NOTE | 2018-12-03 18:15 | NUR ---
DR. CARMONA IN TO SEE PT. UPDATES GIVEN ON PT'S CONDITION. WILL FOLLOW UP ON ORDERS.
--- NOTE | 2018-12-03 19:30 | NUR ---
REPORT GIVEN TO PRINTMAKER RN FOR CONTINUITY OF CARE. NO SIGNS OF ACUTE DISTRESS NOTED AT THIS TIME.
--- NOTE | 2018-12-03 19:35 | NUR ---
RECEIVED PT FROM DAY SHIFT RN NO ACUTE DISTRESS NOTED. WILL CONTINUE TO OBSERVE.
--- NOTE | 2018-12-03 19:45 | NUR ---
PT SEDATED, EYES CLOSED, RASS-3 FLACC 0. OCCASSIONALLY MOVING ARMS AND HEAD SIDE TO SIDE. 7.5 ETT TO VENT 26 @ LIP, SCANT BROWN/YELLOW SPUTUM NOTED; LUNGS DIMINISHED BREATH SOUNDS. SR 90S +1 TRACE EDEMA NOTED. ABD SOFT NON DISTENDED. OGT IN PLACE, +PLACEMENT. NPO EXCEPT MEDS. CHANDLER CATH IN PLACE YELLOW URINE NOTED. SKIN INTACT. TRIPLE LUMEN CENTRAL LINE INTERNAL JUGULAR. VERSED @ 5 MG/HR AND FENTANYL DRIP @ 28 MCG/KG/HR. BED LOCKED IN LOWEST POSITION. SAFETY PRECAUTIONS IN PLACE.
[2018-12-03] MEDS: MIRTAZAPINE 15 MG TAB PO SCH (20:10)
--- NOTE | 2018-12-03 20:25 | NUR ---
RECEIVED PATIENT ON CURRENT SETTINGS: AC/VC 500 RATE 12 PEEP 14 FIO2 50%. PATIENT IS INTUBATED WITH AN ET TUBE SIZE 7.5 THAT IS SECURED WITH AN ANCHORFAST AT 24CM AT THE LIP AND AT ORAL RIGHT. OBSERVED AND SAW NO LIP REDNESS OR BREAKDOWN. TREATMENT GIVEN INLINE WITH NO ADVERSE EFFECT. B/S: COARSE BILATERALLY PRE AND POST TREATMENT. SUCTIONED PATIENT AND RECEIVED MODERATE, YELLOW, AND A THICK BROWN MUCOUS PLUG. VENT SETTINGS AND ALARMS ARE VERIFIED. AMBU BAG AT BEDSIDE. VENT BRAKES ARE ON.
[2018-12-04] VITALS (83 sets, daily range): BP systolic 98–119; BP diastolic 65–108
--- NOTE | 2018-12-04 | NUR ---
PT TURNED AND REPOSITIONED. VAP ORAL CARE DONE, BROWN THICK SPUTUM NOTED VIA INLINE SUCTION. NO ACUTE DISTRESS NOTED. VSS. WILL CONTINUE TO OBSERVE.
--- NOTE | 2018-12-04 03:14 | NUR ---
ROUTINE VENT CHECK AND PATIENT ASSESSMENT. B/S: COARSE BILATERALLY IN THE UPPER LOBES AND DIMINISHED IN THE BASES. SUCTIONED PATIENT AND RECEIVED SCANT, THIN, WHITE SECRETIONS.
--- NOTE | 2018-12-04 03:30 | NUR ---
BED BATH GIVEN. X1 DISPOSABLE PAD SOILED WITH URINE. CHANDLER CHECKED FOR PLACEMENT. REINSTILLED 10 CC, WATER. WILL CONTINUE TO OBSERVE.
[2018-12-04] MEDS: methylPREDNISolone SS 40 MG/ML VIAL IVP SCH ×3 (04:08→20:52)
[2018-12-04] MEDS: VANCOMYCIN 750 MG in DEXTROSE 5% 250 ML IV SCH ×3 (04:08→20:52)
--- NOTE | 2018-12-04 05:50 | NUR ---
ROUTINE VENT CHECK AND PATIENT ASSESSMENT. MOVED ET TUBE TO MIDLINE. PATIENT HAS A SMALL RED SPOT ON LOWER LIP NEAR RIGHT CORNER. SUCTIONED PATIENT AND RECEIVED SMALL, THICK YELLOW/BROWN SECRETIONS.
[2018-12-04 06:11] LABS: HEMATOCRIT 27.7 % (36-48); HEMOGLOBIN 9.3 g/dL (12.0-16.0); LYMPHOCYTES # (AUTO) 0.9 K/uL (2.5-16.5); LYMPHOCYTES % (AUTO) 9.8 % (20.5-51.1); MEAN CORPUSCULAR HEMOGLOBIN 31 pg (27-31); MEAN CORPUSCULAR HGB CONC 34 g/dL (33-37); MONOCYTES # (AUTO) 0.4 K/uL (0.8-1.0); MONOCYTES % (AUTO) 4.2 % (1.7-9.3); NEUTROPHILS # (AUTO) 7.6 K/uL (1.8-7.7); PLATELET COUNT (AUTO) 220 K/uL (140-450); RED BLOOD CELL COUNT(AUTO) 3.01 MIL/uL (4.20-5.40); RED CELL DISTRIBUTION WIDTH 15.6 % (11.6-13.7); WHITE BLOOD COUNT (AUTO) 8.9 K/uL (4.8-10.8)
[2018-12-04] MEDS: LEVOTHYROXINE 0.075 MG TAB PO SCH (06:28)
[2018-12-04 06:39] LABS: ANION GAP 12.4 (8-16); CARBON DIOXIDE 24.7 mmol/L (21-32); CREATININE 0.6 mg/dL (0.6-1.3); POTASSIUM 5.1 mmol/L (3.5-5.1)
[2018-12-04 06:46] LABS: MAGNESIUM 2.6 mg/dL (1.8-2.4); PHOSPHORUS 1.9 mg/dL (2.5-4.9)
--- NOTE | 2018-12-04 07:20 | NUR ---
REPORT GIVEN TO DAY SHIFT RN FOR CONTINUITY OF CARE.
--- NOTE | 2018-12-04 07:30 | NUR ---
DR LUKASZ STEPHEN AT BEDSIDE REDUCE PEEP TO 8cmH2O THEN ABG 1 HOUR Addendum: 12/04/18 at 0841 by Pepito Dunaway RT LUKASZ HOGAN
--- NOTE | 2018-12-04 07:30 | NUR ---
RECEIVED BEDSIDE REPORT FROM WRAPPER CASER RN. FLACC 0, AFEBRILE. PT IS SEDATED, RASS -3. SINUS RHYTHM ON MONITOR. PT IS ETT TO VENT W/ SETTINGS: AC 12, FIO2 50%, VT 500, PEEP 14. LUNG SOUNDS CLEAR BILATERALLY. ABD SOFT, NONDISTENDED, NONTENDER. OGT IN PLACE, PLACEMENT CONFIRMED. CENTRAL LINE TO RIJ TLC ASYMPTOMATIC, PATENT AND INTACT, RUNNING IVF NS AT 70 ML/HR, FENTANYL DRIP AT 28 MCG/HR AND VERSED DRIP AT 5 MG/HR. CHANDLER CATHETER IN PLACE DRAINING YELLOW URINE TO GRAVITY DRAINAGE BAG. SKIN IS INTACT, DRY AND WARM TO TOUCH. HOB 30 DEGREES, BED IN LOWEST POSITION, LOCKED AND CALL LIGHT WITHIN REACH. NO SIGNS OF DISTRESS NOTED AT THIS TIME. WILL CONTINUE TO MONITOR.
--- NOTE | 2018-12-04 07:35 | NUR ---
PT SEEN AND EXAMINED BY DR. STEPHEN. WILL FOLLOW UP ON ORDERS.
[2018-12-04] MEDS: ALBUTEROL SULFATE/IPRATROPIU 3 ML SOL IH SCH ×3 (07:55→19:13)
--- NOTE | 2018-12-04 07:57 | NUR ---
RECEIVED ON A StylistpickSCAPE R860 VENTILATOR PLUGGED INTO RED OUTLET TOLERATING WELL WITHOUT ADVERSE REACTIONS NOTED TO AN ENDOTRACHEAL TUBE #7.5 SECURED WITH AN ANCHOR FAST AT 24cm AMBU BAG AT [facility] LOC SEDATED FENTANYL IV 28mcg VERSED IV 5mg BREATH SOUNDS CLEAR BILATERAL WITH GOOD CHEST RIAE AND AERATION THROUGHOUT PULMONARY RYAN AIRWAY PATENT
[2018-12-04] MEDS: NACL 0.9% 1,000 ML IV SCH ×2 (08:00→21:01)
--- NOTE | 2018-12-04 08:06 | NUR ---
POST HHN THERAPY TITRATED PEEP TO 8cmH2O
[2018-12-04] MEDS: GABAPENTIN 300 MG CAP PO SCH ×3 (09:09→16:44)
[2018-12-04] MEDS: PANTOPRAZOLE 40 MG INJ VIAL IVP SCH (09:09)
[2018-12-04] MEDS: MONTELUKAST SODIUM 10 MG TAB PO SCH (09:09)
[2018-12-04] MEDS: SODIUM PHOS / POTASSIUM PHOS 1 PKT PDR NG SCH ×2 (09:09→20:53)
[2018-12-04] MEDS: DULoxetine 30 MG CAPDR PO SCH (09:09)
--- NOTE | 2018-12-04 09:30 | NUR ---
MEDICATIONS ADMINISTERED ORDERED. PT TOLERATED WELL.
--- NOTE | 2018-12-04 09:45 | NUR ---
REVIEWED [facility] SAMPLE REPORT WITH DR SAMIRA STEPHEN MD STATES "PATIENT IS COMING AROUND" MD MILES TITRATED PEEP TO 5cmH2O KEEP SATURATION GREATER THAN 92% ALLAN/DALLAS INFORMED Addendum: 12/04/18 at 1009 by Pepito Dunaway RT JD = AMISHA
--- NOTE | 2018-12-04 10:03 | NUR ---
PER AMISHA CHANGED PEEP TO 5cmH2O TITRATED FIO2 TO 40% SATURATION 99% ON FIO2 OF 50% RATANA/RN NOTIFIED BREATH SOUNDS CLEAR BILATERAL WITH GOOD CHEST RISE AIRWAY PATENT
[2018-12-04] MEDS ORDERED: fentaNYL 1 MG in NACL 0.9% 80 ML IV PRN (10:10)
[2018-12-04] MEDS ORDERED: MIDAZOLAM MDV 100 MG in NACL 0.9% 80 ML IV PRN (10:10)
--- NOTE | 2018-12-04 10:52 | NUR ---
BREATH SOUNDS RHONCHI BILATERAL WITH GOOD CHEST RISE ENDOTRACHEAL SUCTION FOR LARGE THICK YELLOW SECRETIONS AIRWAY PATENT
--- NOTE | 2018-12-04 11:17 | NUR ---
SEDATED NO APPARENT PULMONARY DISTRESS NOTED GOOD CHEST RISE AIRWAY PATENT
--- NOTE | 2018-12-04 12:00 | NUR ---
TURNED AND REPOSITIONED FOR COMFORT AND OFF LOAD PRESSURE. VAP ORAL CARE GIVEN. TOLERATED WELL.
--- NOTE | 2018-12-04 12:10 | NUR ---
VERSED STOPPED AT THIS TIME. STILL ON FENTANYL DRIP. VSS. WILL CONTINUE TO MONITOR.
--- NOTE | 2018-12-04 12:20 | NUR ---
CALLED CENTRAL SUPPL[employer], REQUESTED A FEEDING PUMP.
--- NOTE | 2018-12-04 12:57 | NUR ---
SEDATED NO SOB NOTED GOOD CHEST RISE AND AERATION THROUGHOUT LUNG RYAN AIRWAY PATENT Addendum: 12/04/18 at 1310 by Pepito Dunaway RT SATURATION 96% ON FIO2 OF 40% TITRATED FIO2 TO 35% ALLAN/RN/RN NOTIFIED
--- NOTE | 2018-12-04 13:23 | NUR ---
12/04/18 RD FOLLOW UP COMPLETED PLEASE REFER TO NUTRITION ASSESSMENT UNDER CARE ACTIVITY FOR ESTIMATED NUTRITIONAL NEEDS. 1. CONTINUE VITAL @ 40 ML/HR , START AT 10 AND ADVANCE BY 10 Q6H -THIS WILL PROVIDE 960 ML OF VOLUME, 1152 KCAL, AND 72 GM OF PROTEIN, WHICH MEETS 100% OF ESTIMATED KCAL AND 76% OF ESTIMATED PROTEIN NEEDS 2. CONTINUE FREE WATER FLUSH 70 ML Q4H 3. WHEN PATIENT IS WEENED OFF VENTILATION, CONSIDER A SWALLOW EVALUATION TO ADVANCE DIET 4. RD TO FOLLOW-UP 2-3 DAYS, HIGH RISK KATH CHANEL RD
--- NOTE | 2018-12-04 14:57 | NUR ---
NO CHANGE IN CONDITION AT THIS TIME. TITRATING DOWN FENTANYL DRIP. NO S/SX OF DISTRESS NOTED. VSS. SAFETY PRECAUTIONS IN PLACE. WILL CONTINUE TO MONITOR.
--- NOTE | 2018-12-04 15:37 | NUR ---
SEDATED GOOD CHEST RISE ENDOTRACHEAL SUCTION FOR MODERATE THIN YELLOW SECRETIONS AIRWAY PATENT
--- NOTE | 2018-12-04 16:10 | NUR ---
FENTANYL STOPPED AT THIS TIME. DR. STEPHEN AWARE THAT PT IS OFF SEDATION. RASS -1 AT THIS TIME. VSS.
--- NOTE | 2018-12-04 16:30 | NUR ---
CALLED CENTRAL SUPPL[employer], LEFT MESSAGE AND REQUESTED FEEDING PUMP.
[2018-12-04] MEDS: SCOPOLAMINE 1.5 MG/72 HR PATCH TD SCH (16:44)
--- NOTE | 2018-12-04 16:45 | NUR ---
PT'S DAUGHTER AT BEDSIDE. PT IS STABLE, VITAL SIGNS WNL. NO SIGNS OF DISTRESS NOTED AT THIS TIME.
--- NOTE | 2018-12-04 17:15 | NUR ---
50 ML OF FENTANYL AND 25 ML OF VERSED WASTED. WITNESSED BY CHARGE NURSE.
--- NOTE | 2018-12-04 17:19 | NUR ---
OGT PLACEMENT CONFIRMED FOR TUBE FEEDING.
--- NOTE | 2018-12-04 17:20 | NUR ---
TUBE FEEDING STARTED AT 10 ML/HR ORDERED.
--- NOTE | 2018-12-04 17:39 | NUR ---
RESTING WELL WITHOUT PULMONARY DISTRESS NOTED GOOD CHEST RISE AND AERATION THROUGHOUT LUNG RYAN BILATERALLY AIRWAY PATENT Addendum: 12/04/18 at 1745 by Pepito Dunaway RT SATURATION 97% ON FIO2 OF 35% TITRATED FIO2 TO 30% JERMAINE NOTIFIED
--- NOTE | 2018-12-04 18:40 | NUR ---
DR. CAMRONA IN TO SEE AND EXAMINE PT. WILL FOLLOW UP ON ORDERS.
--- NOTE | 2018-12-04 19:21 | NUR ---
REPORT GIVEN TO CERTIFIED TRAVEL COUNSELOR RN FOR CONTINUITY OF CARE. PT IS IN STABLE CONDITION.
--- NOTE | 2018-12-04 19:22 | NUR ---
Received pt stable on vent support at documented settings, suctioned small amounts of thick yellow brown secretions, hhn tx given, tolerated well, no resp distress or SOB noted at this time, 7.5 ETT secured and patent at 24 cm, alarms set and audible, ambu bag at bedside, vent plugged into red outlet, cont pulse on, will cont to monitor.
--- NOTE | 2018-12-04 19:25 | NUR ---
RECEIVED BEDSIDE REPORT FROM MORNING SHIFT RN, ALLAN, FOR CONTINUITY OF CARE. PT IS AROUSABLE TO NAME, LETHARGIC AT THIS TIME. ETT TO VENT, FIO2=30%, CW=995, RR=12, FLOW=40L/MIN, PEEP=5. BP 112/76, SATING 100%, HR=92, RR=18. LUNG SOUND CLEAR ON UPPER BILATERAL LOBES. RT JACQUELINE AT BEDSIDE TO SEE PATIENT. SR ON RN BUILDING. RIGHT IJ TRIPLE LUMEN INFUSING NS AT 70CC/HR. SALINE FLUSHED WITH BLOOD RETURN NOTED. OGT IN PLACE SET TO FEEDING, VITALS AF AT 10CC/HR. BOWEL SOUNDS ACTIVE X4. RESIDUAL OF 25CC, FEEDING CONTINUED AT THIS TIME. CHANDLER IN PLACE CLEAR/YELLOW. SKIN IS INTACT/NORMAL IN COLOR, ALLERGY TO SULFAMETHOXAZOLE AND TRIMETHOPRIM NOTED ON ALLERGY BAND. STANDARD, FALL AND ASPIRATION PRECAUTIONS MAINTAINED. HOB ABOVE 3O DEG.
[2018-12-04] MEDS: MIRTAZAPINE 15 MG TAB PO SCH (20:53)
--- NOTE | 2018-12-04 22:40 | NUR ---
SLEEPING QUIETY, APPEARS TO BE WITHOUT DISTRESS, FLACC 0. PT AROUSES TO NAME.
[2018-12-05] VITALS (17 sets, daily range): BP systolic 90–117; BP diastolic 47–78
[2018-12-05] MEDS: LORazepam 2 MG/ML VIAL IM/IVP PRN (00:03)
--- NOTE | 2018-12-05 00:03 | NUR ---
ORAL SUCTIONING PROVIDED X2, PT AWAKE/EASY TO AROUSE. ATIVAN GIVEN. HOB ELEVATED, VSS. SATING 95%, RR=18.
[2018-12-05] MEDS: MORPHINE SULFATE 2 MG/ML SYR IVP PRN ×2 (01:29→23:28)
[2018-12-05] MEDS: HYDROcodone/APAP 5/325 MG 1 TAB TAB PO PRN ×2 (03:07→21:19)
[2018-12-05] MEDS: VANCOMYCIN 750 MG in DEXTROSE 5% 250 ML IV SCH ×2 (03:09→13:03)
--- NOTE | 2018-12-05 04:45 | NUR ---
AM CARES/CHANDLER CATH CARE PROVIDED. PT AROUSES TO NAME/TOUCHING. REPOSITIONED. SUCTIONING PROVIDED X2, SMALL WHITE/CLEAR SECRETIONS NOTED. AFEBRILE, VSS. HOB ELEVATED. TUBE FEEDING AT 20CC/HR.
[2018-12-05 05:50] LABS: ANION GAP 10.3 (8-16); CREATININE 0.7 mg/dL (0.6-1.3); POTASSIUM 4.3 mmol/L (3.5-5.1)
[2018-12-05 05:52] LABS: MAGNESIUM 2.4 mg/dL (1.8-2.4); PHOSPHORUS 1.9 mg/dL (2.5-4.9)
[2018-12-05 06:02] LABS: BASOPHILS % (AUTO) 0.1 % (0.0-2.0); HEMATOCRIT 28.1 % (36-48); HEMOGLOBIN 9.5 g/dL (12.0-16.0); LYMPHOCYTES # (AUTO) 0.9 K/uL (2.5-16.5); LYMPHOCYTES % (AUTO) 8.5 % (20.5-51.1); MEAN CORPUSCULAR HEMOGLOBIN 31 pg (27-31); MEAN CORPUSCULAR HGB CONC 34 g/dL (33-37); MEAN CORPUSCULAR VOLUME 91.9 fL (80-94); MONOCYTES # (AUTO) 0.6 K/uL (0.8-1.0); MONOCYTES % (AUTO) 5.6 % (1.7-9.3); NEUTROPHILS # (AUTO) 9.4 K/uL (1.8-7.7); NEUTROPHILS % (AUTO) 85.8 % (42.2-75.2); PLATELET COUNT (AUTO) 281 K/uL (140-450); RED BLOOD CELL COUNT(AUTO) 3.06 MIL/uL (4.20-5.40); RED CELL DISTRIBUTION WIDTH 15.2 % (11.6-13.7); WHITE BLOOD COUNT (AUTO) 10.9 K/uL (4.8-10.8)
--- NOTE | 2018-12-05 06:18 | NUR ---
DR. DARLING AT BEDSIDE TO SEE PATIENT, UPDATED ON PT CONDITIONS.
[2018-12-05] MEDS: methylPREDNISolone SS 40 MG/ML VIAL IVP SCH ×3 (06:29→20:34)
[2018-12-05] MEDS: LEVOTHYROXINE 0.075 MG TAB PO SCH (06:32)
--- NOTE | 2018-12-05 07:04 | NUR ---
RECEIVED BEDSIDE REPORT FROM HEAD OF DATA RN, STEPHANIE, FOR CONTINUITY OF CARE. PATIENT IS AAOX4, SLIGHTLY LETHARGIC, ABLE TO FOLLOW SIMPLE COMMANDS. PATIENT SKIN IS WARM, DRY, AFEBRILE AND INTACT. PATIENT HAS A RIJ CENTRAL LINE TRIPLE LUMEN, ASYMPTOMATIC AND PATENT, SHE HAS NS RUNNING AT 70ML/HR. PATIENT HAS ETT TO VENT, SETTINGS ARE AC/VC 12, FIO2 30, TV 500, PEEP 5. BREATHING EVEN AND UNLABORED. ST ON MONITOR, DENIES ANY PAIN. PATIENT HAS OGT IN PLACE TO TUBE FEEDING, VITAL AT 30ML/HR WITH H2O FLUSH 70ML Q4H. PATIENT HAS CHANDLER CATHETER IN PLACE TO CLEAR YELLOW URINE, OUTPUT IS 850 PER HEAD OF DATA RN. HOB IS 30 DEGREES, SAFETY PRECAUTIONS AND ALARMS ASSESSED AND ENFORCED. NO SIGNS OF DISTRESS AT THIS TIME. WILL CONTINUE TO MONITOR.
[2018-12-05] MEDS: ALBUTEROL SULFATE/IPRATROPIU 3 ML SOL IH SCH ×3 (07:05→20:30)
--- NOTE | 2018-12-05 07:26 | NUR ---
PROVIDED BEDSIDE REPORT TO MORNING SHIFT MADELYN HAYNES FOR CONTINUITY OF CARE.
--- NOTE | 2018-12-05 08:17 | NUR ---
DR. MICHELLE AND RESIDENT PHYSICIANS AT BEDSIDE, UPDATED ON PATIENT'S CONDITION. WILL FOLLOW UP ON ANY ORDERS.
--- NOTE | 2018-12-05 08:23 | NUR ---
RT AT BEDSIDE TO START PATIENT ON CPAP TRIALS, TUBE FEEDING IS OFF AT THIS TIME. WILL CONTINUE TO MONITOR
--- NOTE | 2018-12-05 08:24 | NUR ---
DR. TONY IN TO SEE PATIENT, UPDATED ON PATIENT'S CONDITION. WILL FOLLOW UP ON ANY ORDERS.
--- NOTE | 2018-12-05 08:43 | NUR ---
DR CUELLAR AT BEDSIDE. DR CUELLAR WANTS PT ON CPAP TRIAL THEN ABG TO EXTUBATE PT. PT ON CPAP TRIAL. WILL MONITOR.
--- NOTE | 2018-12-05 08:50 | NUR ---
DOCKET CLERK AT BEDSIDE FOR CHEST XRAY, NO ACUTE DISTRESS NOTED.
[2018-12-05] MEDS: SODIUM PHOS / POTASSIUM PHOS 1 PKT PDR NG SCH ×2 (09:05→20:35)
[2018-12-05] MEDS: PANTOPRAZOLE 40 MG INJ VIAL IVP SCH (09:05)
[2018-12-05] MEDS: DULoxetine 30 MG CAPDR PO SCH (09:06)
[2018-12-05] MEDS: GABAPENTIN 300 MG CAP PO SCH ×3 (09:06→17:43)
[2018-12-05] MEDS: MONTELUKAST SODIUM 10 MG TAB PO SCH (09:07)
--- NOTE | 2018-12-05 09:20 | NUR ---
EUNICE DRAWN. RESULTS GIVEN TO MD STEPHEN. PER MD STEPHEN TO EXTUBATE PATIENT. WILL FOLLOW WITH ORDER.
--- NOTE | 2018-12-05 09:20 | NUR ---
RT AT BEDSIDE TO GET ABG, NO SIGNS OF DISTRESS NOTED.
--- NOTE | 2018-12-05 09:30 | NUR ---
ADMINISTERED SCHEDULED MEDS ORDERED, PATIENT TOLERATED WELL. NO RESIDUAL NOTED FROM OGT. WILL CONTINUE TO MONITOR
[2018-12-05] MEDS: NACL 0.9% 1,000 ML IV SCH ×2 (09:31→16:45)
[2018-12-05] MEDS: ONDANSETRON 4 MG/2 ML VIAL IM/IVP PRN (09:36)
--- NOTE | 2018-12-05 10:10 | NUR ---
PATIENT IS EXTUBATED BY RT, DR. DARLING AT BEDSIDE. PATIENT TOLERATED WELL. PLACED ON NASAL CANNULA AT 6LPM. NO SIGNS OF DISTRESS NOTED.
--- NOTE | 2018-12-05 10:10 | NUR ---
PT EXTUBATED BY RT. RN AND MD SHARP AT BEDSIDE. NO SOB OR DISTRESS NOTED. PLACED PT ON 6L NC WITH BUBBLE HUMIDIFIER. WILL CONTINUE TO MONITOR.
--- NOTE | 2018-12-05 11:38 | NUR ---
SPEECH THERAPY DIRECTOR AT BEDSIDE TO GET BLOOD FROM VANCO TROUGH, PATIENT TOLERATED WELL.
--- NOTE | 2018-12-05 13:17 | NUR ---
BEDSIDE SWALLOW EVAL COMPLETED, PATIENT WAS ABLE TO SWALLOW APPLE SAUCE AND TAKE PO MEDICATIONS WITHOUT ANY COMPLICATIONS. WILL FOLLOW UP FOR ANY DIET ORDERS.
--- NOTE | 2018-12-05 13:48 | NUR ---
PATIENT CHANGED FROM NASAL CANNULA 6LPM TO NASAL OXIMIZER AT 1O LPM, EDUCATED BY RT TO BREATH IN THROUGH NOSE, REINFORCEMENT NEEDED. SPO2 IS 90%, WILL CONTINUE TO MONITOR
--- NOTE | 2018-12-05 16:58 | NUR ---
Risk Professional Note: I called and spoke with patient's son Cleve Vu . He stated prior to hospital admission patient was living at home with his uncle Keshawn. He reported patient was independent with ADLs at home and did not use any DME at home. He is not sure if patient has a pcp nor if patient has an existing Advance Directives for health care. He stated he has had good communication with MDs and nursing staff. He told me he was busy at this time and had to end the call. I was able to provide him with my contact information. Unit Manager and/or [employer] Superintendent will follow up as needed.
--- NOTE | 2018-12-05 18:12 | NUR ---
PATIENT'S DAUGHTER AND SON AT BEDSIDE, NO SIGNS OF DISTRESS NOTED.
--- NOTE | 2018-12-05 19:15 | NUR ---
ENDORSED CONTINUITY OF CARE TO GENERATOR WORKER RNSTEPHANIE. NO SIGNS OF DISTRESS NOTED.
[2018-12-05] MEDS ORDERED: SODIUM PHOS / POTASSIUM PHOS 1 PKT PDR PO SCH (19:25)
--- NOTE | 2018-12-05 19:34 | NUR ---
RECEIVED BEDSIDE REPORT FROM MORNING SHIFT RN, MADELYN, FOR CONTINUITY OF CARE. BP 97/57, SATING 93%, HR=93, RR=24. AFEBRILE, TEMP 97.8. PT IS AWAKE/LETHARGIC , ABLE TO RESPOND TO COMMANDS, MAKE NEEDS KNOWN, CALL LIGHT WITHIN REACH. ON NASAL OXIMIZER AT 10L/MIN. LUNG SOUNDS DIMINISHED ON UPPER/LOWER BILATERAL LOBES. BOWEL SOUNDS ACTIVE X4 QUADRANTS. CHANDLER CATH IN PLACE, URINE IS CLEAR/YELLOW IN COLOR/PATENT.RIGHT IJ CENTRAL LINE IN PLACE, INFUSING NS AT 10CC/HR, TKO. SKIN IS INTACT, NORMAL IN COLOR. FALL RISK, STANDARD PRECAUTIONS MAINTAINED, HOB ELEVATED ABOVE 30 DEG, PT IS RELAXED AND WATCHING TELEVISION AT THIS TIME. FULL CODE, ALLERGIES TO SULFAMETHOXAZOLE, AND TRIMETHOPRIM NOTED.
--- NOTE | 2018-12-05 19:50 | NUR ---
PHONE GIVEN TO PT AT BEDSIDE TO CONTACT FAMILY TO BRING PHONE INDUSTRIAL MACHINE OPERATOR.
[2018-12-05] MEDS ORDERED: VANCOMYCIN 1GM/DEXT 5% PREMIX 200 ML IV ONE (20:00)
[2018-12-05] MEDS ORDERED: VANCOMYCIN 750 MG in DEXTROSE 5% 250 ML IV SCH (20:00)
[2018-12-05] MEDS: MIRTAZAPINE 15 MG TAB PO SCH (20:35)
[2018-12-05] MEDS ORDERED: VANCOMYCIN 1,000 MG VIAL ONE (21:12)
--- NOTE | 2018-12-05 21:14 | NUR ---
DR. GARCIA AT BEDSIDE TO SEE PATIENT.
--- NOTE | 2018-12-05 21:41 | NUR ---
PT USED PHONE TO CALL S/O TO BRING [employer] SALESPERSON, PT IS MILDY DISTRESSED AT THIS TIME STATED SHE NEED TO CALL HER EMPLOYER FROM CELLPHONE. PT IS COOPERATIVE WITH [facility].
--- NOTE | 2018-12-05 21:56 | NUR ---
PT SATING AT 86-89% , INCREASED OXIMIZER TO 12L/MIN. RT AWARE.
--- NOTE | 2018-12-05 22:15 | NUR ---
INCREASED TO 15L NASAL OXIMIZER, SATING AT 90%, LE=702.
--- NOTE | 2018-12-05 23:38 | NUR ---
PT REMAINS ON NASAL OXIMIZER, 15L/MIN, SATING IN 94%, RR=22, BP =107/ 79.HR =82. SPOKE WITH RT PRESENT ON ICU, WILL NOT PLACE PATIENT ON BIPAP AT THIS TIME SHE IS IN STABLE CONDITION. MORPHINE GIVEN PER PATIENT PAIN RATING 9/10.
[2018-12-06] VITALS (8 sets, daily range): BP systolic 92–108; BP diastolic 53–74
--- NOTE | 2018-12-06 03:21 | NUR ---
PT SLEEPING, REPOSITIONED, EASY TO AROUSE. HOB ELEVATED, VSS.
[2018-12-06] MEDS: methylPREDNISolone SS 40 MG/ML VIAL IVP SCH ×3 (04:31→21:26)
[2018-12-06 04:55] LABS: EOSINOPHILS % (AUTO) 0.1 % (0.0-4.0); HEMATOCRIT 26.1 % (36-48); HEMOGLOBIN 8.7 g/dL (12.0-16.0); LYMPHOCYTES # (AUTO) 1.7 K/uL (2.5-16.5); MEAN CORPUSCULAR HEMOGLOBIN 31 pg (27-31); MEAN CORPUSCULAR HGB CONC 34 g/dL (33-37); MEAN CORPUSCULAR VOLUME 91.7 fL (80-94); MONOCYTES # (AUTO) 0.6 K/uL (0.8-1.0); MONOCYTES % (AUTO) 4.4 % (1.7-9.3); NEUTROPHILS # (AUTO) 10.6 K/uL (1.8-7.7); NEUTROPHILS % (AUTO) 82.5 % (42.2-75.2); PLATELET COUNT (AUTO) 334 K/uL (140-450); RED BLOOD CELL COUNT(AUTO) 2.85 MIL/uL (4.20-5.40); WHITE BLOOD COUNT (AUTO) 12.9 K/uL (4.8-10.8)
[2018-12-06 05:03] LABS: ANION GAP 10.1 (8-16); CARBON DIOXIDE 29.7 mmol/L (21-32); CREATININE 0.7 mg/dL (0.6-1.3); POTASSIUM 3.8 mmol/L (3.5-5.1)
[2018-12-06 05:06] LABS: PHOSPHORUS 2.2 mg/dL (2.5-4.9)
[2018-12-06] MEDS: LEVOTHYROXINE 0.075 MG TAB PO SCH (05:52)
--- NOTE | 2018-12-06 05:53 | NUR ---
AM CARES, CHANDLER CATH CARE PROVIDED, PT HAD ONE SMALL BOWEL MOVEMENT (BROWN/FORMED). COOPERATIVE WITH CARES, EASILY AROUSES TO NAME) AND ABLE TO ASSIST IN REPOSITIONING SELF IN BED. PT IS ON 15L/MIN OXIMIZER AND SATING AT 94%, RR=26. FLACC 0.
--- NOTE | 2018-12-06 06:00 | NUR ---
URINE OUTPUT FOR QSHIFT = 1326, URINE IS ELLEN IN COLOR, NO SEDIMENTS.
--- NOTE | 2018-12-06 06:24 | NUR ---
DR DARLING IN TO SEE PATIENT.
[2018-12-06] MEDS: PROMETH/CODEINE 6.25-10MG/5ML 5 ML UDC PO PRN ×2 (07:05→18:53)
--- NOTE | 2018-12-06 07:23 | NUR ---
GAVE BEDSIDE REPORT TO MORNING SHIFT RNTORRES, FOR CONTINUITY OF CARE.
--- NOTE | 2018-12-06 07:24 | NUR ---
RECEIVED REPORT FROM BOX SEALING MACHINE OPERATOR NURSE AT BEDSIDE, PT IS AAOX4, ABLE TO FOLLOW COMMANDS AND MAKE NEEDS KNOWN, VSS, C/O PAIN WHEN COUGHING, NOSE DOWN TO THE THROAT PAIN, 9/10, WILL MEDICATED. CENTRAL LINE TO RIJ, TLC, FLUSHED WITH GOOD BLOOD RETURN, KVO. NO S/S OF DISTRESS, CLEAR LUNG SOUNDS MARGOT, ON OXYMIZER AT 12L, O2 SAT 94%. COUGHING NOTED, DENIES CHEST PAIN, SR ON BATHING SUIT MAKER, SOFT ABDOMEN WITH ACTIVE BOWEL SOUNDS, F/C IN PLACE WITH CLEAR YELLOW URINE VIA GRAVITY, ABLE TO MOVE ALL EXTREMITIES, SKIN IS INTACT, WARM AND DRY TO TOUCH, HOB ELEVATED TO 30 DEGREES, SAFETY MEASURES IN PLACE, CALL LIGHT WITHIN REACH, WILL CONTINUE TO MONITOR.
--- NOTE | 2018-12-06 07:40 | NUR ---
DR. STEPHEN CAME IN TO SEE PT AT BEDSIDE, UPDATED PT'S CONDITION, NO NEW ORDER AT THIS TIME.
[2018-12-06] MEDS: MORPHINE SULFATE 2 MG/ML SYR IVP PRN ×3 (07:59→21:48)
[2018-12-06] MEDS: DULoxetine 30 MG CAPDR PO SCH (08:41)
[2018-12-06] MEDS: MONTELUKAST SODIUM 10 MG TAB PO SCH (08:41)
[2018-12-06] MEDS: PANTOPRAZOLE 40 MG INJ VIAL IVP SCH (08:41)
[2018-12-06] MEDS: SODIUM PHOS / POTASSIUM PHOS 1 PKT PDR NG SCH ×2 (08:41→21:27)
[2018-12-06] MEDS: GABAPENTIN 300 MG CAP PO SCH ×3 (08:47→16:48)
[2018-12-06] MEDS: VANCOMYCIN 1GM/DEXT 5% PREMIX 200 ML IV SCH ×2 (08:49→21:26)
[2018-12-06] MEDS: ALBUTEROL SULFATE/IPRATROPIU 3 ML SOL IH SCH ×3 (08:57→19:34)
--- NOTE | 2018-12-06 09:00 | NUR ---
SCHEDULED MEDICATION GIVEN, PT IS ABLE TO SWALLOW PILLS WHOLE AT THIS TIME, CHANDLER CATHETER REMOVED ORDERED, PT TOLERATED WELL ON THE PROCEDURE.
--- NOTE | 2018-12-06 12:00 | NUR ---
PT IS RESTING IN BED, VSS, NO S/S OF DISTRESS, DENIES PAIN, STATED HUNGRY WITH FULL LIQUID DIET, MD AWARE, CHANGED FOR REGULAR DIET NOW.
--- NOTE | 2018-12-06 15:38 | NUR ---
12/06/18 RD FOLLOW UP COMPLETED PLEASE REFER TO NUTRITION ASSESSMENT UNDER CARE ACTIVITY FOR ESTIMATED NUTRITIONAL NEEDS. 1. CONTINUE REGULAR DIET TOLERATED 2. RD TO FOLLOW-UP 5-7 DAYS, LOW RISK KATH CHANEL RD
--- NOTE | 2018-12-06 16:00 | NUR ---
PT IS RESTING IN BED, NO S/S OF DISTRESS, DENIES PAIN, PT'S FAMILY BOUGHT IN SOME FOOD FOR HER, SHE IS ABLE TO EAT WITHOUT COMPLICATIONS.
[2018-12-06] MEDS: NACL 0.9% 1,000 ML IV SCH (16:45)
--- NOTE | 2018-12-06 16:45 | NUR ---
PT TRANSFERRED TO TELEMETRY VIA BED TO ROOM 123A, ALL BELONGS GOES WITH PT, NO INCIDENT NOTED AT THIS TIME.
--- NOTE | 2018-12-06 17:15 | NUR ---
RECEIVED PT FROM ICU NURSE, TORRES, VIA DYLON, AWAKE AND ALERT AND HAS AN O2 AT 12L VIA OXYMIZER. VITAL SIGNS CHECKED AND BP IS 102/59, PULSE IS 87, O2 SATURATION IS 96% VIA OXYMIZER, TEMPERATURE IS 98 AND RESPIRATION IS 18/MIN, PT HAS A RT IJ TRIPLE LUMEN WITH NS AT 10ML/HR INFUSING. PT DENIES PAIN. NO SIGN OF DISTRESS NOTED AND WILL MONITOR PT.
--- NOTE | 2018-12-06 17:15 | NUR ---
REPORT GIVEN TO DALLAS NEGRO AT BEDSIDE, PT IS IN STABLE CONDITION AT THIS TIME.
--- NOTE | 2018-12-06 18:54 | NUR ---
PT IS AWAKE AND VITAL SIGNS CHECKED AN BP IS 102/61, PULSE IS 89, O2 SATURATION IS 96% AT 12L VIA OXYMIZER, PT ASKED FOR A COUGH MEDICINE AND PROMETHAZINE WAS GIVEN AND PT TOLERATED IT, WILL MONITOR PT.
--- NOTE | 2018-12-06 19:25 | NUR ---
ENDORSED PT TO VIRTUALIZATION ARCHITECT NURSESE FOR CONTINUITY OF CARE.
--- NOTE | 2018-12-06 19:30 | NUR ---
Received endorsement from AM shift RN; patient A/Ox4, able to make needs known, resting at high fowlers position. Introduced self, updated board. Bed bound, but can use bedside commode. No SOB or distress noted, on Oxymizer at 12LPM. IV site right IJ triple lumen, asymptomatic and intact. Skin is intact. Bed in the lowest position, call light within reach. Initial assessment done. Will continue to monitor.
--- NOTE | 2018-12-06 20:05 | NUR ---
Assisted patient to bedside commode. Urine yellow and cloudy, 1000mL measured output.
[2018-12-06] MEDS: MIRTAZAPINE 15 MG TAB PO SCH (21:27)
--- NOTE | 2018-12-06 21:30 | NUR ---
Vitals taken, due meds given. No distress noted.
--- NOTE | 2018-12-06 21:40 | NUR ---
Patient complained of 8/10 back pain. Will medicate as ordered and per pain scale.
--- NOTE | 2018-12-06 23:00 | NUR ---
Patient asleep, visible chest rise and fall noted.
[2018-12-07] VITALS: BP 119/72
--- NOTE | 2018-12-07 00:05 | NUR ---
Vitals taken; patient coughing, asked for a breathing treatment. Sharyn GIRON made aware.
--- NOTE | 2018-12-07 00:07 | NUR ---
Sharyn GIRON at bedside; administered PRN breathing treatment.
--- NOTE | 2018-12-07 01:23 | NUR ---
O2Sat 92%, NE 97.
--- NOTE | 2018-12-07 02:12 | NUR ---
No distress noted at this time. O2Sat 93%, HP 93, RR 20. Patient asleep, visible chest rise and fall noted. Addendum: 12/07/18 at 0213 by Patric Dinh RN HR 93
[2018-12-07] MEDS: MORPHINE SULFATE 2 MG/ML SYR IVP PRN ×3 (03:53→21:14)
--- NOTE | 2018-12-07 03:57 | NUR ---
Vitals taken; patient stated she had 8/10 back pain. Medicated as ordered and per pain scale. BP 111/63, RR 20, HR 87, O2Sat 95%, Temp 98.3. Will continue to monitor.
[2018-12-07 04:00] VITALS: BP 111/63
[2018-12-07] MEDS: methylPREDNISolone SS 40 MG/ML VIAL IVP SCH ×3 (05:26→20:38)
[2018-12-07] MEDS: LEVOTHYROXINE 0.075 MG TAB PO SCH (05:30)
--- NOTE | 2018-12-07 05:30 | NUR ---
Due meds given, tolerated well. O2Sat 95%, HR 86, RR 16. Will continue to monitor.
--- NOTE | 2018-12-07 07:05 | NUR ---
Endorsed patient to AM shift RN; patient in stable condition.
--- NOTE | 2018-12-07 07:08 | NUR ---
RECEIVED BEDSIDE REPORT FROM MASSAGE THERAPIST NURSE FOR CONTINUITY OF CARE. PATIENT IS RESTING ON BED AT THIS TIME. AOX4 AND COOPERATIVE. DENIES PAIN. RESPIRATION EVEN AND UNLABORED. NO SIGN OF DISTRESS OR SOB NOTED. ON 12LPM OXYMIZER. RIJ TRIPLE LUMEN, CLEAN AND INTACT, INFUSING AT 10ML/HR. SKIN INTACT AND DRY. HEART SHAPE OPTI FOAM NOTED ON SACRAL AREA. PATIENT IS BEDREST. COMMODE AT BEDSIDE. SEQUENTIAL COMPRESSION SOCKS IN PLACE. SAFETY PRECAUTIONS IN PLACE. DISCUSSED PLAN OF CARE WITH PATIENT AND PATIENT VERBALIZED UNDERSTANDING. INSTRUCTED PATIENT TO USE THE CALL LIGHT FOR ANY ASSISTANCE. BED IS IN LOW POSITION AND CALL LIGHT WITHIN REACH.
[2018-12-07 07:39] LABS: ANION GAP 10.6 (8-16); CARBON DIOXIDE 30.3 mmol/L (21-32); CREATININE 0.6 mg/dL (0.6-1.3); POTASSIUM 3.9 mmol/L (3.5-5.1)
--- NOTE | 2018-12-07 07:42 | NUR ---
ASSISTED PATIENT TO USE THE BEDSIDE COMMODE AND BACK ON BED. INTERMITTENT COUGH NOTED. SAFETY MEASURES IN PLACE. BED IN LOW POSITION. CALL LIGHT WITHIN REACH.
[2018-12-07 07:44] LABS: EOSINOPHILS # (AUTO) 0.1 K/uL (0-0.4); EOSINOPHILS % (AUTO) 0.6 % (0.0-4.0); LYMPHOCYTES # (AUTO) 0.7 K/uL (2.5-16.5); MEAN CORPUSCULAR HEMOGLOBIN 31 pg (27-31); MEAN CORPUSCULAR HGB CONC 33 g/dL (33-37); MONOCYTES # (AUTO) 0.4 K/uL (0.8-1.0); MONOCYTES % (AUTO) 2.5 % (1.7-9.3); NEUTROPHILS # (AUTO) 13.1 K/uL (1.8-7.7); NEUTROPHILS % (AUTO) 91.9 % (42.2-75.2); PLATELET COUNT (AUTO) 426 K/uL (140-450); RED BLOOD CELL COUNT(AUTO) 2.93 MIL/uL (4.20-5.40); RED CELL DISTRIBUTION WIDTH 15.3 % (11.6-13.7)
[2018-12-07 07:49] LABS: MAGNESIUM 1.8 mg/dL (1.8-2.4); PHOSPHORUS 3.2 mg/dL (2.5-4.9)
[2018-12-07 08:00] VITALS: BP 109/69
[2018-12-07 08:07] LABS: WHITE BLOOD COUNT (AUTO) 14.3 K/uL (4.8-10.8)
[2018-12-07] MEDS: ALBUTEROL SULFATE/IPRATROPIU 3 ML SOL IH SCH ×3 (08:12→19:30)
[2018-12-07] MEDS: PANTOPRAZOLE 40 MG INJ VIAL IVP SCH (09:14)
[2018-12-07] MEDS: GABAPENTIN 300 MG CAP PO SCH ×3 (09:14→16:47)
[2018-12-07] MEDS: DULoxetine 30 MG CAPDR PO SCH (09:15)
[2018-12-07] MEDS: MONTELUKAST SODIUM 10 MG TAB PO SCH (09:15)
[2018-12-07] MEDS: SODIUM PHOS / POTASSIUM PHOS 1 PKT PDR NG SCH ×2 (09:16→21:11)
--- NOTE | 2018-12-07 09:26 | NUR ---
ADMINISTERED MEDS PER MD ORDER, PATIENT TOLERATED WELL. HOLD VANCOMYCIN AND PENDING FOR LAB TOUGH. PATIENT DENIES PAIN AND SOB. SPO2 94% AT THIS TIME, ON 12LPM OXIMIZER. NO SIGNS OF DISTRESS NOTED. SAFETY MEASURES IN PLACE. TELE MONITOR ATTACHED.
--- NOTE | 2018-12-07 10:51 | NUR ---
DR PAGE IS TALKING TO PATIENT AT BEDSIDE. NO SIGNS OF DISTRESS NOTED. SAFETY MEASURES IN PLACE.
[2018-12-07] MEDS: VANCOMYCIN HCL 750 MG in DEXTROSE 5% 250 ML IV SCH ×2 (10:52→21:31)
--- NOTE | 2018-12-07 11:05 | NUR ---
PAGED FLORECITA AND SPOKE TO DIETITIELDON HENDRICKSON THAT PER DR PAGE, ADD ENSURE BID TO PATIENT'S DIET. PER DIETITIELDON HENDRICKSON, SHE WILL ADD IT TO PATIENT'S DIET. Addendum: 12/07/18 at 1230 by Michelle Vázquez RN ENSURE ONCE PER DAY
--- NOTE | 2018-12-07 11:20 | NUR ---
PATIENT IS TALKING TO VISITOR AT BEDSIDE. DENIES PAIN AND SOB. NO SIGNS OF DISTRESS NOTED. SAFETY MEASURES IN PLACE.
--- NOTE | 2018-12-07 11:42 | NUR ---
INCENTIVE SPIROMETER AND EDUCATION PROVIDED TO PATIENT. INSTRUCTED PATIENT TO USE IT WHEN SHE IS AWAKE 4X ADAY, 10X PER SESSION OR TOLERATED. EDUCATED PATIENT THAT SHE MAY GET LIGHT-HEADED. PATIENT VERBALIZED UNDERSTANDING AND WAS AWARE. PATIENT SAID, "I WILL USE IT WHEN I AM AWAKE."
[2018-12-07 12:00] VITALS: BP 103/66
--- NOTE | 2018-12-07 12:09 | NUR ---
PT C/O LEVEL 8 BACK PAIN. REPOSITIONED PATIENT AND PATIENT SAID, " THE PAIN DOESN'T GO AWAY. I NEED MY PAIN MED." MEDICATED WITH PRN PAIN MEDICATION. SAFETY MEASURES IN PLACE. TELE MONITOR ATTACHED.
--- NOTE | 2018-12-07 13:38 | NUR ---
PATIENT IS TALKING TO VISITOR NACHO AT BEDSIDE. DENIES PAIN AND SOB. SPO2 AT 98%, ON OXIMIZER LPM. NO SIGNS OF DISTRESS NOTED. SAFETY MEASURES IN PLACE. TELE MONITOR ATTACHED.
--- NOTE | 2018-12-07 15:34 | NUR ---
PATIENT IS TALKING TO VISITORS AT BEDSIDE. DENIES PAIN AND SOB. NO SIGN OF DISTRESS NOTED. ON 12LPM OXIMIZER, SPO2 IS 96% AT THIS TIME. SAFETY MEASURES IN PLACE. TELE MONITOR ATTACHED.
[2018-12-07 16:00] VITALS: BP 104/55
[2018-12-07] MEDS: NACL 0.9% 1,000 ML IV SCH (16:45)
[2018-12-07] MEDS: SCOPOLAMINE 1.5 MG/72 HR PATCH TD SCH (16:50)
--- NOTE | 2018-12-07 16:52 | NUR ---
ADMINISTERED MEDS PER MD ORDER, PATIENT TOLERATED WELL. REMOVED SCOPOLAMINE PATCH FROM BEHIND R EAR AND APPLIED A NEW PATCH ON L EAR. PATIENT DENIES PAIN AND SOB. ON 12LPM OXIMIZER. NO SIGNS OF DISTRESS NOTED. PATIENT IS TALKING TO VISITOR GREGORIA IS AT BEDSIDE. SAFETY MEASURES IN PLACE. TELE MONITOR ATTACHED.
--- NOTE | 2018-12-07 17:28 | NUR ---
PATIENT WAS CRYING AND COMPLAINING OF NARES DISCOMFORT. PATIENT STATED THAT THE OXIMIZER IS IRRITATING HER NARES. ASSESSED NARES AND IT'S PINK. APPLIED MOUTH MOISTURIZER AROUND NARES AND UPPER LIP AREA. APPLIED PAPER TAPE ON OXIMIZER TUBING TO PREVENT SKIN BREAKDOWN. NOTIFIED RT AND MD ON REGARDS.
--- NOTE | 2018-12-07 18:01 | NUR ---
PATIENT STATED THAT SHE FELT BETTER AFTER THE APPLIED THE MOUTH MOISTURIZER AND PAPER TAPE AROUND THE OXIMIZER AND TUBING. DENIES PAIN AND SOB. ON 12LPM OXIMIXER, SPO2 AT 96% THIS TIME. NO SIGNS OF DISTRESS NOTED. DAUGHTER ARMANDO IS AT BEDSIDE. SAFETY MEASURES IN PLACE. TELE MONITOR ATTACHED.
--- NOTE | 2018-12-07 19:16 | NUR ---
RECEIVED REPORT FORM ESTRELLA RN [facility] NURSE AT BEDSIDE FOR CONTINUITY OF CARE, PT INSTABLE CONDITION.
--- NOTE | 2018-12-07 19:16 | NUR ---
RECEIVED REPORT AT BEDSIDE FROM ESTRELLA [facility] NURSE AT BEDSIDE FOR CONTINUITY OF CARE, PT INSTABLE CONDITION. Addendum: 12/08/18 at 0420 by Laura Ho RN REPEATED NOTE
--- NOTE | 2018-12-07 19:16 | NUR ---
ENDORSED PATIENT AT BEDSIDE TO BODY MECHANIC NURSE FOR CONTINUITY OF CARE. PATIENT IS IN STABLE CONDITION. DAUGHTER ARMANDO IS AT BEDSIDE. SAFETY MEASURES ARE IN PLACE. TELE MONITOR ATTACHED.
[2018-12-07 20:00] VITALS: BP 91/106
--- NOTE | 2018-12-07 20:00 | NUR ---
PT IN BED WITH ALL FALLS PRECAUTIONS IN PLACE. HOB UP 90 DEGREES AND RT AT BEDSIDE , PT RECEIVING NEB TREATMENT. RT SAID THAT PT IS STATING 88% ON ROOM AIR. RT DECREASED OXYMIZER TO 10L. PT STATING ABOUT 92-96% ON OXYMIZER. ORDER TO KEEP PT AT 92% 02 AND BETTER.
--- NOTE | 2018-12-07 21:00 | NUR ---
PT IN BED WITH ALL FALLS PRECAUTIONS IN PLACE. PT HAS TRIPLE LUMEN CENTRAL LINE INTACT AND FLUSHED PATENT. N/S RUNNING AT 10 TO KVO. PT GIVEN DUE ROUTINE MEDS ORDERED.( SOLUMEDROL, HEPARIN,REMERON AND NEUTRA-PHOS) PT LUNG SOUNDS DIMINISHED WITH CRACKLES. BOWEL SOUNDS PRESENT. PT ABLE TO TRANSFER SELF TO BEDSIDE COMMODE. V/S FOLLOWS T 97.7 P 91 R 18 B/P 106/64 02 96% ON ROOM AIR.
[2018-12-07] MEDS: MIRTAZAPINE 15 MG TAB PO SCH (21:06)
--- NOTE | 2018-12-07 21:20 | NUR ---
PT C/O SEVER BACK PAIN 04/12 GIVEN IVP MORPHINE WILL MONITOR FOR EFFECT.
[2018-12-08] VITALS: BP 108/68
--- NOTE | 2018-12-08 | NUR ---
PT IN BED V/S FOLLOWS T 97.8 P 87 R 18 B/P 108/68 02 93% ON ROOM AIR. PT REQUESTED FOOD AND RECEIVED A [employer] SANDWICH. PT DENIES CAMPOS AT THIS TIME. BED LOW SIDE RAILS UP X2 AND MARYLIN MITCHELL IN REACH.
--- NOTE | 2018-12-08 03:00 | NUR ---
VANCOMYCIN HUNG ORDERED. PT IN BED OXYMIZER ON IS 94%.
[2018-12-08] MEDS: VANCOMYCIN HCL 750 MG in DEXTROSE 5% 250 ML IV SCH (03:35)
--- NOTE | 2018-12-08 04:00 | NUR ---
PT IN BED SLEEPING OXYMIZER IN PLACE AND V/S FOLLOWS T 97.3 P 82 R 18 B/P 99/57 02 92% WITH 10L ON OXYMIZER. PT SLEEPING BUT AROUSABLE TO NAME, PT FRANCES PAIN OR DISCOMFORT AT THIS TIME.
[2018-12-08] MEDS: methylPREDNISolone SS 40 MG/ML VIAL IVP SCH ×2 (05:44→20:21)
[2018-12-08] MEDS: LEVOTHYROXINE 0.075 MG TAB PO SCH (05:58)
[2018-12-08 06:00] VITALS: BP 99/57
--- NOTE | 2018-12-08 07:15 | NUR ---
CARE ENDORSED TO ESTELA RN AT BEDSIDE FOR CONTINUITY OF CARE, PT IN STABLE CONDITION.
--- NOTE | 2018-12-08 07:16 | NUR ---
RECEIVED REPORT FROM END FINDER TWISTING DEPARTMENT NURSE. PT IN STABLE CONDITION. RESPIRATIONS EVEN AND UNLABORED. IV INTACT AND PATENT. O2 10L OXYMIZER. SAFETY MEASURES IN PLACE. BED IN LOW POSITION. BED ALARM ON. CALL LIGHT AT BEDSIDE. WILL CONTINUE TO MONITOR.
[2018-12-08] MEDS: ALBUTEROL SULFATE/IPRATROPIU 3 ML SOL IH SCH ×4 (08:02→23:00)
--- NOTE | 2018-12-08 08:08 | NUR ---
SPO2 ON 10 L OXYMIZER 97%. WILL TITRATE OXYGEN. WILL CONTINUE TO MONITOR. Addendum: 12/08/18 at 0809 by Best Souza RT PT IN BED EATING BREAKFAST NO SOB AT THIS TIME.
[2018-12-08] MEDS: GABAPENTIN 300 MG CAP PO SCH ×3 (09:29→17:42)
[2018-12-08] MEDS: DULoxetine 30 MG CAPDR PO SCH (09:30)
[2018-12-08] MEDS: PANTOPRAZOLE 40 MG INJ VIAL IVP SCH (09:30)
[2018-12-08] MEDS: MONTELUKAST SODIUM 10 MG TAB PO SCH (09:30)
[2018-12-08] MEDS: MORPHINE SULFATE 2 MG/ML SYR IVP PRN (09:49)
--- NOTE | 2018-12-08 10:33 | NUR ---
0925 PT LYING IN BED FAMILY AT BEDSIDE. PT IN STABLE CONDITION.
[2018-12-08 10:40] LABS: HEMATOCRIT 30.2 % (36-48); HEMOGLOBIN 9.9 g/dL (12.0-16.0); MEAN CORPUSCULAR HEMOGLOBIN 31 pg (27-31); MEAN CORPUSCULAR HGB CONC 33 g/dL (33-37); MEAN CORPUSCULAR VOLUME 93.1 fL (80-94); PLATELET COUNT (AUTO) 481 K/uL (140-450); RED BLOOD CELL COUNT(AUTO) 3.24 MIL/uL (4.20-5.40); RED CELL DISTRIBUTION WIDTH 15.4 % (11.6-13.7); WHITE BLOOD COUNT (AUTO) 17.9 K/uL (4.8-10.8)
[2018-12-08 10:48] LABS: ANION GAP 13.1 (8-16); CARBON DIOXIDE 29.2 mmol/L (21-32); CREATININE 0.7 mg/dL (0.6-1.3); POTASSIUM 4.3 mmol/L (3.5-5.1)
[2018-12-08 10:56] LABS: LYMPHOCYTES % (MANUAL) 6 % (20-46); MONOCYTES % (MANUAL) 3 % (5-12)
[2018-12-08] MEDS ORDERED: ALBUTEROL SULFATE/IPRATROPIU 3 ML SOL IH SCH (11:14)
--- NOTE | 2018-12-08 11:45 | NUR ---
ASSISTED PT WITH BEDSIDE COMMODE AT THIS TIME. PT TOLERATED WELL. WILL CONTINUE TO MONITOR. BED IN LOW POSITION. CALL LIGHT AT BEDSIDE.
[2018-12-08 12:00] VITALS: BP 110/69
--- NOTE | 2018-12-08 12:23 | NUR ---
PT PLACED ON 4L NASAL CANNULA SPO2 95%. WILL CONTINUE TO MONITOR.
[2018-12-08] MEDS: VANCOMYCIN 1GM/DEXT 5% PREMIX 200 ML IV SCH ×2 (12:32→19:56)
[2018-12-08] MEDS ORDERED: VANCOMYCIN PER PHARMACY MC PRN (13:30)
[2018-12-08] MEDS ORDERED: LORazepam 2 MG/ML VIAL IM/IVP PRN (13:30)
[2018-12-08] MEDS: PIPER/TAZO 3.375GM/D5W PREMIX 50 ML IV SCH ×2 (13:53→22:01)
--- NOTE | 2018-12-08 15:35 | NUR ---
PT LYING IN BED IN STABLE CONDITION. FAMILY AT BEDSIDE. WILL CONTINUE TO MONITOR. BED IN LOW POSITION. CALL LIGHT AT BEDSIDE.
[2018-12-08 16:00] VITALS: BP 93/56
[2018-12-08] MEDS: NACL 0.9% 1,000 ML IV SCH (17:45)
[2018-12-08 18:01] LABS: APPEARANCE,URINE CLEAR (CLEAR); COLOR,URINE YELLOW (YELLOW)
[2018-12-08] MEDS: ACETAMINOPHEN 325 MG TAB PO PRN (18:10)
[2018-12-08 18:31] LABS: BILIRUBIN,URINE NEGATIVE (NEGATIVE); BLOOD, URINE NEGATIVE (NEGATIVE); LEUKOCYTE ESTERASE ,URINE NEGATIVE (NEGATIVE); NITRITE, URINE NEGATIVE (NEGATIVE); PH,URINE 7.5 (5.0-9.0); UGLUCOSE NEGATIVE (NEGATIVE)
--- NOTE | 2018-12-08 19:33 | NUR ---
REPORT GIVEN TO LEGAL INTERNSHIP KATY RN FOR CONTINUITY OF CARE. PT IS STABLE AT THIS TIME.
--- NOTE | 2018-12-08 19:34 | NUR ---
RECEIVED BEDSIDE REPORT FROM DAY SHIFT NURSE ESTELA. PT AAO X 4 AND ON 3.5 LPM OXYGEN VIA NC WITH 91% O2 SAT. WITH O2, NO SOB NOTED. CENTRAL LINE NOTED ON IJ TRIPLE LUMEN AND SITE CLEAN, PATENT, AND ASYMPTOMATIC. RUNNING NS AT 10ML/HR. ALL SAFE PRECAUTION MET. INITIAL ASSESSMENT DONE. BED IN LOW POSITION. BED ALARM ON. CALL LIGHT AT BEDSIDE. WILL CONTINUE TO MONITOR.
[2018-12-08] MEDS ORDERED: KETOROLAC 15 MG/ML VIAL IM ONE (19:35)
[2018-12-08 20:00] VITALS: BP 92/51
--- NOTE | 2018-12-08 20:20 | NUR ---
DUE MEDICATION ADMINISTERED, PT C/O PAIN TO THE BACK, DR. LOVE NOTIFIED, ORDERED TORADOL FOR PAIN, MEDICATION ADMINISTER, PT TOLERATED WELL, NO DISTRESS NOTED, CALL LIGHT WITHIN REACH, WILL CONTINUE TO MONITOR.
[2018-12-08] MEDS: MIRTAZAPINE 15 MG TAB PO SCH (20:22)
[2018-12-08] MEDS ORDERED: guaiFENesin 20 MG/ML UDC PO PRN (22:05)
[2018-12-08] MEDS ORDERED: traMADol 50 MG TAB PO SCH (22:05)
--- NOTE | 2018-12-08 22:31 | NUR ---
PT C/O OF PAIN AND ALSO COUGHING, DR. LOVE NOTIFIED, ORDERED TRAMADOL AND ROBITUSSIN, MEDICATION ORDERED ADMINISTERED, PT TOLERATED WELL, NO DISTRESS NOTED, CALL LIGHT WITHIN REACH, WILL CONTINUE TO MONITOR.
[2018-12-09] VITALS: BP 97/60
--- NOTE | 2018-12-09 00:01 | NUR ---
CHECKED ON PT, PT SLEEPING, V/S TAKEN, WITHIN PT BASELINE, CALL LIGHT WITHIN REACH, WILL CONTINUE TO MONITOR.
[2018-12-09] MEDS: VANCOMYCIN 1GM/DEXT 5% PREMIX 200 ML IV SCH (02:37)
--- NOTE | 2018-12-09 02:37 | NUR ---
DUE MEDICATION ADMINISTERED, PT TOLERATED WELL, NO DISTRESS NOTED, CALL LIGHT WITHIN REACH, WILL CONTINUE TO MONITOR.
[2018-12-09] MEDS: ALBUTEROL SULFATE/IPRATROPIU 3 ML SOL IH SCH ×6 (03:00→23:14)
[2018-12-09 04:00] VITALS: BP 91/57
[2018-12-09] MEDS: LEVOTHYROXINE 0.075 MG TAB PO SCH (06:06)
[2018-12-09] MEDS: PIPER/TAZO 3.375GM/D5W PREMIX 50 ML IV SCH ×3 (06:07→20:31)
--- NOTE | 2018-12-09 06:07 | NUR ---
DUE MEDICATION ADMINISTERED, CVP DRESSING CHANGED PER PT REQUEST, PT TOLERATED WELL, NO DISTRESS NOTED, CALL LIGHT WITHIN REACH, WILL CONTINUE TO MONITOR.
--- NOTE | 2018-12-09 07:15 | NUR ---
ENDORSED PATIENT AT BEDSIDE TO DAY SHIFT NURSETWAN FOR CONTINUITY OF CARE. PATIENT IS IN STABLE CONDITION. SAFETY MEASURES ARE IN PLACE. TELE MONITOR ATTACHED.
--- NOTE | 2018-12-09 07:16 | NUR ---
REPORT RECEIVED FROM FUNDER, PT AWAKE ALERT, RESP EVEN UNLABORED, ON 3L NC, SKIN WARM DRY COLOR WNL, PT DENIES PAIN OR DISCOMFORT, POC REVIEWED, NO IMMEDIATE NEEDS AT THIS TIME, WILL CONTINUE TO MONTOR.
[2018-12-09 07:50] LABS: ANION GAP 11.4 (8-16); CARBON DIOXIDE 30.8 mmol/L (21-32); CREATININE 0.7 mg/dL (0.6-1.3); POTASSIUM 4.2 mmol/L (3.5-5.1)
[2018-12-09 07:51] LABS: PHOSPHORUS 3.6 mg/dL (2.5-4.9)
[2018-12-09 08:00] VITALS: BP 95/53
[2018-12-09 08:01] LABS: BASOPHILS % (AUTO) 0.1 % (0.0-2.0); EOSINOPHILS % (AUTO) 0.1 % (0.0-4.0); HEMATOCRIT 28.1 % (36-48); HEMOGLOBIN 9.2 g/dL (12.0-16.0); LYMPHOCYTES % (AUTO) 6.4 % (20.5-51.1); MEAN CORPUSCULAR HEMOGLOBIN 30 pg (27-31); MEAN CORPUSCULAR HGB CONC 33 g/dL (33-37); MEAN CORPUSCULAR VOLUME 93.1 fL (80-94); MONOCYTES # (AUTO) 0.5 K/uL (0.8-1.0); MONOCYTES % (AUTO) 3.3 % (1.7-9.3); NEUTROPHILS # (AUTO) 13.9 K/uL (1.8-7.7); NEUTROPHILS % (AUTO) 90.1 % (42.2-75.2); PLATELET COUNT (AUTO) 475 K/uL (140-450); RED BLOOD CELL COUNT(AUTO) 3.01 MIL/uL (4.20-5.40); RED CELL DISTRIBUTION WIDTH 15.5 % (11.6-13.7); WHITE BLOOD COUNT (AUTO) 15.4 K/uL (4.8-10.8)
--- NOTE | 2018-12-09 08:05 | NUR ---
PT SITTING UP EATING BREAKFAST, [id number] ON 3L NC, DECREASED TO 2L AT THIS TIME, PT WANTS OATMEAL INSTEAD OF CREAM OF WHEAT, DIETARY CALLED WITH REQUEST.
[2018-12-09] MEDS: methylPREDNISolone SS 40 MG/ML VIAL IVP SCH ×2 (09:27→20:31)
[2018-12-09] MEDS: FAMOTIDINE 20 MG TAB PO SCH (09:28)
[2018-12-09] MEDS: DULoxetine 30 MG CAPDR PO SCH (09:28)
[2018-12-09] MEDS: MONTELUKAST SODIUM 10 MG TAB PO SCH (09:29)
[2018-12-09] MEDS: traMADol 50 MG TAB PO PRN ×2 (09:49→21:13)
[2018-12-09] MEDS: GABAPENTIN 300 MG CAP PO SCH ×3 (09:49→17:01)
--- NOTE | 2018-12-09 10:08 | NUR ---
PHYSICAL THERAPY AT BEDSIDE.
--- NOTE | 2018-12-09 10:58 | NUR ---
VANCO TROPH 20.2 PER LAB, PHARMACY [facility] NOTIFIED, VANCO 1100 DOSE TO BE HELD.
[2018-12-09 12:00] VITALS: BP 95/50
--- NOTE | 2018-12-09 12:09 | NUR ---
PT SITTING UP TALKING TO DAUGHTER AND VISITOR, PT SPEAKING WITH RASPY VOICE, NO SOB NOTED, O2 SAT 94% WITH 2L NC, WILL CONTINUE TO MONTOR.
--- NOTE | 2018-12-09 13:45 | NUR ---
CALLED [facility], [phone] AND FAXED INQUIRY TO [phone].
[2018-12-09] MEDS ORDERED: VANCOMYCIN 750 MG in DEXTROSE 5% 250 ML IV SCH (14:00)
--- NOTE | 2018-12-09 15:47 | NUR ---
SPOKE WITH DARYL TAM. SHE WILL BE HERE IN THE MORNING TO SPEAK WITH THE PATIENT.
[2018-12-09 16:00] VITALS: BP 98/52
[2018-12-09] MEDS: DOCUSATE SODIUM 100 MG GELCAP PO PRN (17:04)
[2018-12-09] MEDS: NACL 0.9% 1,000 ML IV SCH (17:27)
--- NOTE | 2018-12-09 19:30 | NUR ---
RECEIVED BEDSIDE REPORT FROM PRIYA HAYNES. LAYNE X4. PT ON NC 2L. RESPIRATIONS ARE EQUAL AND UNLABORED. SKIN IS INTACT. PT WITH R IJ TRIPLE LUMEN. ORDER TO D/C AND START PERIPHERAL IV. WILL ATTEMPT TO START IV. PT USES BEDSIDE COMMODE. LUNG SOUNDS ARE DIMINISHED. FAMILY IS AT BEDSIDE. PLAN OF CARE WAS DISCUSSED WITH PT AND FAMILY. CALL LIGHT WITHIN REACH. WILL CONTINUE TO MONITOR.
--- NOTE | 2018-12-09 19:43 | NUR ---
AWAKE AND ALERT VERBALLY RESPONSIVE HHN THERAPY DUE AT 2300 AND 0300 PATIENT STATES "IF I'M ASLEEP AT 11:00 GIVE ME THE TREATMENT IF I'M ASLEEP AT 0300 DON'T GIVE IT TO ME" FREELANCE WEB DESIGNER TO ADVISE Addendum: 12/09/18 at 2304 by Pepito Dunaway RT CHAY/D[place] PATEL
[2018-12-09] MEDS: MIRTAZAPINE 15 MG TAB PO SCH (20:31)
--- NOTE | 2018-12-09 20:31 | NUR ---
DUE MEDICATIONS WERE GIVEN. PT TOLERATED WELL. WILL CONTINUE TO MONITOR.
[2018-12-09] MEDS: VANCOMYCIN 750 MG in DEXTROSE 5% 250 ML IV SCH (21:13)
--- NOTE | 2018-12-09 22:17 | NUR ---
PT BEGAN COMPLAINING OF CHEST PAIN. DR CARMONA IN PT ROOM. WILL FOLLOW NEW ORDERS.
[2018-12-09] MEDS: KETOROLAC 15 MG/ML VIAL IVP PRN (22:31)
--- NOTE | 2018-12-09 23:13 | NUR ---
RT AT BEDSIDE PERFORMING EKG. PT STATES PAIN IS DECREASING. ALL NEEDS MET AT THIS TIME. CALL LIGHT WITHIN REACH. WILL CONTINUE TO MONITOR.
[2018-12-10] VITALS: BP 104/64
--- NOTE | 2018-12-10 | NUR ---
VITAL SIGNS ARE WITHIN NORMAL LIMITS. ALL NEEDS MET AT THIS TIME. CALL LIGHT WITHIN REACH.
--- NOTE | 2018-12-10 01:57 | NUR ---
PT IS SLEEPING COMFORTABLY IN BED. NO S/S OF DISTRESS. SAFETY MEASURES ARE IN PLACE. CALL LIGHT WITHIN REACH.
[2018-12-10] MEDS: ALBUTEROL SULFATE/IPRATROPIU 3 ML SOL IH SCH ×6 (03:00→22:34)
--- NOTE | 2018-12-10 03:30 | NUR ---
ASLEEP RESTING WELL NO SOB NOTED NOTED ON12/09/2018 AT 1943 PATIENT STATES "IF I'M ASLEEP AT 0300 DON'T GIVE IT TO ME"
[2018-12-10] MEDS: PIPER/TAZO 3.375GM/D5W PREMIX 50 ML IV SCH ×3 (04:32→20:20)
--- NOTE | 2018-12-10 04:45 | NUR ---
PT REFUSED TO START A PERIPHERAL IV. STATES, "I AM ALMOST BEING DISCHARGE I MIGHT GO HOME TODAY AND MY CENTRAL LINE IS WORKING. I DON'T WANT TO GET POKED. THEY POKED ME A FEW TIMES EARLIER." I EXPLAINED TO PT THE RISK OF INFECTION WITH CENTRAL LINE AND SOMEONE WILL BE COMING IN TODAY FROM [facility] TO SPEAK WITH HER. SHE MIGHT NOT GO HOME TODAY. PT VERBALIZED UNDERSTANDING. BUT STILL REFUSED NEW IV.
[2018-12-10] MEDS: LEVOTHYROXINE 0.075 MG TAB PO SCH (05:57)
[2018-12-10] MEDS: VANCOMYCIN 750 MG in DEXTROSE 5% 250 ML IV SCH ×3 (05:57→21:23)
[2018-12-10 06:31] LABS: ANION GAP 13.4 (8-16); CARBON DIOXIDE 29.7 mmol/L (21-32); CREATININE 0.7 mg/dL (0.6-1.3); POTASSIUM 4.1 mmol/L (3.5-5.1)
[2018-12-10 06:35] LABS: PHOSPHORUS 3.6 mg/dL (2.5-4.9)
--- NOTE | 2018-12-10 07:20 | NUR ---
GAVE BEDSIDE REPORT TO DAY SHIFT RN. PT ENDORSED IN STABLE CONDITION.
--- NOTE | 2018-12-10 07:21 | NUR ---
REPORT RECEIVED FROM AUTOMOBILE TIRE BUILDER NURSE, PT AWAKE ALERT, RESP EVEN UNLABORED ON ROOM AIR, SKIN WARM DRY COLOR WNL, PT DENIES CHEST PAIN OR DISCOMFORT, POC REVIEWED, ALL SAFETY MEASURES IN PLACE, WILL CONTINUE TO MONITOR.
[2018-12-10 07:35] LABS: BASOPHILS % (AUTO) 0.2 % (0.0-2.0); EOSINOPHILS % (AUTO) 0.1 % (0.0-4.0); HEMATOCRIT 26.5 % (36-48); HEMOGLOBIN 8.7 g/dL (12.0-16.0); LYMPHOCYTES # (AUTO) 0.9 K/uL (2.5-16.5); LYMPHOCYTES % (AUTO) 5.6 % (20.5-51.1); MEAN CORPUSCULAR HEMOGLOBIN 31 pg (27-31); MEAN CORPUSCULAR HGB CONC 33 g/dL (33-37); MEAN CORPUSCULAR VOLUME 93.6 fL (80-94); MONOCYTES # (AUTO) 0.6 K/uL (0.8-1.0); MONOCYTES % (AUTO) 3.6 % (1.7-9.3); NEUTROPHILS # (AUTO) 14.2 K/uL (1.8-7.7); NEUTROPHILS % (AUTO) 90.5 % (42.2-75.2); PLATELET COUNT (AUTO) 476 K/uL (140-450); RED BLOOD CELL COUNT(AUTO) 2.83 MIL/uL (4.20-5.40); RED CELL DISTRIBUTION WIDTH 15.8 % (11.6-13.7); WHITE BLOOD COUNT (AUTO) 15.7 K/uL (4.8-10.8)
[2018-12-10 08:00] VITALS: BP 93/53
[2018-12-10] MEDS: methylPREDNISolone SS 40 MG/ML VIAL IVP SCH ×2 (09:04→20:20)
[2018-12-10] MEDS: MONTELUKAST SODIUM 10 MG TAB PO SCH (09:05)
[2018-12-10] MEDS: FAMOTIDINE 20 MG TAB PO SCH (09:05)
[2018-12-10] MEDS: GABAPENTIN 300 MG CAP PO SCH ×3 (09:05→16:05)
[2018-12-10] MEDS: DULoxetine 30 MG CAPDR PO SCH (09:05)
--- NOTE | 2018-12-10 09:15 | NUR ---
AM MEDS GIVEN, PT YENY WELL, PT C/O BACK PAIN, WILL GIVE TORADOL.
[2018-12-10] MEDS: KETOROLAC 15 MG/ML VIAL IVP PRN ×2 (09:17→16:05)
--- NOTE | 2018-12-10 10:50 | NUR ---
CALLED [facility]. DARYL WILL BE HER ABOUT NOON TO SEE THE PATIENT.
--- NOTE | 2018-12-10 11:35 | NUR ---
[facility] STAFF HERE TO SEE PT.
[2018-12-10] MEDS ORDERED: LEVO750T2 PO (11:38)
[2018-12-10] MEDS ORDERED: MELO7.5T11 PO (11:38)
[2018-12-10] MEDS ORDERED: PRED20TA5 PO (11:38)
[2018-12-10] MEDS ORDERED: FAMO-90 PO (11:38)
[2018-12-10] MEDS ORDERED: ALBU2.5V IH (11:42)
--- NOTE | 2018-12-10 12:27 | NUR ---
PT BACK IN BED, PT SITTING UP EATING LUNCH AND TALKING ON THE PHONE.
--- NOTE | 2018-12-10 15:57 | NUR ---
PT UP TO BATHROOM WITH STEADY GAIT WITHOUT ASSIST, DENIES DIZZINESS OR SOB, VSS, WILL MEDICATE PER ORDER.
[2018-12-10 16:00] VITALS: BP 97/53
[2018-12-10] MEDS: SCOPOLAMINE 1.5 MG/72 HR PATCH TD SCH (16:04)
[2018-12-10] MEDS: NACL 0.9% 1,000 ML IV SCH (16:45)
--- NOTE | 2018-12-10 17:45 | NUR ---
PT'S SON AND GRANDCHILDREN AT BEDSIDE.
[2018-12-10] MEDS: DOCUSATE SODIUM 100 MG GELCAP PO PRN (18:29)
--- NOTE | 2018-12-10 19:29 | NUR ---
REPORT RECEIVED FROM EDUCATION COORDINATOR NURSE, PT IN STABLE CONDITION.
--- NOTE | 2018-12-10 19:30 | NUR ---
RECEIVED BEDSIDE REPORT FROM JEVON HAYNES. PT IS AAO X4. ON ROOM AIR. RESPIRATIONS ARE EQUAL AND UNLABORED. HAS CENTRAL LINE ON R IJ TRIPLE LUMEN. TKO. SKIN IS INTACT. PT IS ABLE TO GET UP TO RESTROOM PER NURSE. PLAN OF CARE DISCUSSED WITH PT. PT AWARE OF POSSIBILITY OF BEING DISCHARGE TOMORROW. SHE VERBALIZED UNDERSTANDING. SAFETY MEASURES ARE IN PLACE. CALL LIGHT WITHIN REACH.
--- NOTE | 2018-12-10 20:20 | NUR ---
DUE MEDICATIONS ADMINISTERED PT TOLERATED WELL. PT STATES DR DURING DAY TOLD HER SHE WOULD PUT IN A MUSCLE RELAXANT. NO NEW ORDER. MADE DR CARMONA AWARE. ALL SAFETY MEASURES ARE IN PLACE. WILL CONTINUE TO MONITOR.
[2018-12-10] MEDS: MIRTAZAPINE 15 MG TAB PO SCH (20:21)
[2018-12-10] MEDS: traMADol 50 MG TAB PO PRN (20:21)
--- NOTE | 2018-12-10 22:30 | NUR ---
PT IS SLEEPING COMFORTABLY IN BED. RESPIRATIONS ARE EQUAL AND UNLABORED. ALL NEEDS MET AT THIS TIME. CALL LIGHT WITHIN REACH. WILL CONTINUE TO MONITOR.
--- NOTE | 2018-12-11 | NUR ---
VITAL SIGNS ARE WITHIN NORMAL LIMITS. ALL NEEDS MET AT THIS TIME. WILL CONTINUE TO MONITOR.
[2018-12-11 00:01] VITALS: BP 102/68
[2018-12-11] MEDS: KETOROLAC 15 MG/ML VIAL IVP PRN ×2 (01:10→13:17)
--- NOTE | 2018-12-11 02:15 | NUR ---
PT IS SLEEPING COMFORTABLY IN BED. RESPIRATIONS ARE EQUAL AND UNLABORED. CALL LIGHT IS WITHIN REACH. SAFETY MEASURES ARE IN PLACE.
[2018-12-11] MEDS: ALBUTEROL SULFATE/IPRATROPIU 3 ML SOL IH SCH ×4 (02:37→15:36)
[2018-12-11] MEDS: PIPER/TAZO 3.375GM/D5W PREMIX 50 ML IV SCH ×2 (04:18→13:17)
[2018-12-11 05:59] LABS: ANION GAP 9.8 (8-16); CARBON DIOXIDE 30.4 mmol/L (21-32); POTASSIUM 4.2 mmol/L (3.5-5.1)
[2018-12-11 06:00] LABS: CREATININE 0.7 mg/dL (0.6-1.3)
[2018-12-11] MEDS: LEVOTHYROXINE 0.075 MG TAB PO SCH (06:02)
[2018-12-11] MEDS: VANCOMYCIN 750 MG in DEXTROSE 5% 250 ML IV SCH ×2 (06:02→14:45)
[2018-12-11 06:03] LABS: MAGNESIUM 2.2 mg/dL (1.8-2.4)
[2018-12-11 06:04] LABS: PHOSPHORUS 4.8 mg/dL (2.5-4.9)
[2018-12-11 06:52] LABS: BASOPHILS % (AUTO) 0.2 % (0.0-2.0); EOSINOPHILS % (AUTO) 0.1 % (0.0-4.0); HEMATOCRIT 26.8 % (36-48); LYMPHOCYTES # (AUTO) 1.4 K/uL (2.5-16.5); LYMPHOCYTES % (AUTO) 8.6 % (20.5-51.1); MEAN CORPUSCULAR HEMOGLOBIN 32 pg (27-31); MEAN CORPUSCULAR HGB CONC 34 g/dL (33-37); MEAN CORPUSCULAR VOLUME 94.1 fL (80-94); MONOCYTES # (AUTO) 0.6 K/uL (0.8-1.0); MONOCYTES % (AUTO) 3.8 % (1.7-9.3); NEUTROPHILS # (AUTO) 13.9 K/uL (1.8-7.7); NEUTROPHILS % (AUTO) 87.3 % (42.2-75.2); PLATELET COUNT (AUTO) 466 K/uL (140-450); RED BLOOD CELL COUNT(AUTO) 2.85 MIL/uL (4.20-5.40); RED CELL DISTRIBUTION WIDTH 15.8 % (11.6-13.7); WHITE BLOOD COUNT (AUTO) 15.9 K/uL (4.8-10.8)
--- NOTE | 2018-12-11 07:22 | NUR ---
GAVE BEDSIDE REPORT TO DAY SHIFT RN. PT ENDORSED IN STABLE CONDITION.
--- NOTE | 2018-12-11 07:23 | NUR ---
RECEIVED REPORT FROM PM NURSE AT THE BEDSIDE. PT SITTING ON HER BED. HAS THE RT IJ TRIPLE LUMEN CENTRAL LINE. DENIES ANY PAIN OR DISCOMFORT. PT STATES TO HAVE BM YESTERDAY. POSSIBLE DISCHARGE TODAY. PT PLACE ON FALL RISK, HAS BSC. SKIN IS INTACT. CALL LIGHT WITHIN PT REACH. INFORM [PT TO USE CALL LIGHT FOR ANY HELP. VERBALIZED UNDERSTANDING. WILL CONTINUE TO MONITOR PT.
[2018-12-11] MEDS ORDERED: CYCLOBENZAPRINE 10 MG TAB PO PRN (07:45)
[2018-12-11 07:59] VITALS: BP 92/44
[2018-12-11] MEDS ORDERED: CYCL-654 PO (09:05)
[2018-12-11] MEDS: GABAPENTIN 300 MG CAP PO SCH ×2 (09:17→13:17)
[2018-12-11] MEDS: DULoxetine 30 MG CAPDR PO SCH (09:17)
[2018-12-11] MEDS: methylPREDNISolone SS 40 MG/ML VIAL IVP SCH (09:18)
[2018-12-11] MEDS: FAMOTIDINE 20 MG TAB PO SCH (09:18)
[2018-12-11] MEDS: MONTELUKAST SODIUM 10 MG TAB PO SCH (09:19)
--- NOTE | 2018-12-11 09:29 | NUR ---
ADMINISTERED MEDS TO PT ORDERED. PT TOLERATED HER MEDS WELL. NO DISTRESS NOTED. PT TO BE DISCHARGED TODAY. INFORMED HER THAT WILL UPDATE ON HER DC PLAN ORDERS ARE PUT IN. VERBALIZED UNDERSTANDING. STUDENT NURSE HELPING THE PT, OFFERED COFFEE TO PATIENT.
[2018-12-11] MEDS ORDERED: CYCLOBENZAPRINE 10 MG TAB PO SCH (09:30)
[2018-12-11] MEDS: traMADol 50 MG TAB PO PRN (11:13)
--- NOTE | 2018-12-11 12:04 | NUR ---
Clinicals faxed to [facility] [phone] for home nebulizer treatment.
--- NOTE | 2018-12-11 13:24 | NUR ---
ADMINISTERED MEDS TO PT ORDERED. PT COMPLAINING FO PAIN, 05/13. IV TORADOL PROVIDED TO PT. LINOLEUM FLOOR INSTALLER TALKING TO THE FAMILY FOR THE HOME HEALTH SERVICES. PT LYING ON HER BED COMFORTABLY. WILL CONTINUE TO MONITOR PT.
--- NOTE | 2018-12-11 14:36 | NUR ---
Faxed clinicals to [facility] for home health for continued physical therapy.
--- NOTE | 2018-12-11 14:52 | NUR ---
ADMINISTERED MEDS TO PT ORDERED. PT WITH THE FAMILY MEMBER , EATING BURGER AT THE BEDSIDE. PT STATES NO PAIN AT THIS TIME. NO SIGN OF DISTRESS NOTED. IVPB VANCOMYCIN INFUSING WELL AT THIS TIME. ALL SAFETY MEASURE IN PLACE. WILL CONTINUE TO MONITOR PT.
--- NOTE | 2018-12-11 15:20 | NUR ---
CHECKED ON THE PT ASKING IF SHE HER DC ORDER ALREADY IN PLACE. INFORMED THAT CM WORKING ON HER HOME HEALTH SERVICE. WILL LET HER KNOW IF ANY DISCHARGE PAPER ARE BEING WORKED BY MD. PT STATES THAT HER PHARMACY CLOSES AT 18OO, NOT WANT THE PRESCRIPTION TO BE SENT THE [facility]. INFORMED PT THAT WILL LET MD KNOW ABOUT IT. PT UP AND SITTING IN HER BED. WILL CONTINUE TO MONITOR PT.
--- NOTE | 2018-12-11 15:30 | NUR ---
Placed a call to [facility] , [phone], [facility] [employer] [facility] , [facility] , [facility] they decline home health PT request.
[2018-12-11 15:42] VITALS: BP 88/56
--- NOTE | 2018-12-11 17:00 | NUR ---
PT HAS BEEN DISCHARGED TO HOME WITH HOME HEALTH SERVICE. PER CM, PT WILL BE CONTACTED TO F/U WITH PT. TRIED SEVERAL AGENCY FOR THE PT, NO RESPOND. WILL FOLLOW UP WITH PT AT TOMORROW AT HOME. CENTRAL IJ TAKEN OUT ORDERED. PT TOLERATED WELL. ALL DISCHARGE PAPER AND PRESCRIPTION PROVIDED TO . PT WHEELED OUT WITH WHEELCHAIR OUT TO THE LOBBY. PT PICKED UP BY THE DAUGHTER.PT STABLE , TOOK ALL HER BELONGINGS WITH HER.
--- NOTE | 2018-12-12 10:30 | NUR ---
Called [facility] , [facility] , [facility] all 3 not accepting HH for PT only.
--- NOTE | 2018-12-12 10:36 | NUR ---
Informed Mirtha GUO from [facility] that I called several HH that she gave me and all declined. She gave me [facility] . Called [facility] and they don't have coverage in the area.
--- NOTE | 2018-12-12 10:51 | NUR ---
Per Mirtha GUO from [facility] to call [facility] and informed them that the pt needs to see her PCP and she can get out patient for PT.
--- NOTE | 2018-12-12 10:55 | NUR ---
Spoke with Mildred from [facility] and informed her pt could not get HH for PT and Mirtha GUO from [facility] told me to inform [facility] about the situation. [facility] will follow up for pt to see her PCP Dr. Kathryn Ramírez and her PCP can send her for out patient PT.
--- NOTE | 2018-12-12 11:01 | NUR ---
Spoke with pt and informed her that we are unable to find a HH for PT and per the CM Mirtha from [facility], pt needs to see her PCP and she can do out patient PT. Informed pt that [facility] knows about the situation and they will follow up with the pt. Patient will call her PCP Dr. Kathryn Ramírez today and make an appt.
--- NOTE | 2018-12-12 12:36 | NUR ---
Received fax from [facility] AUTH #[id number] for nebulizer.
== END 2018-12-11 17:00 | disposition home health service (06) | DRG 720 ==
LOC: MED 15:21 → MTU 18:45 → MIC 12-01 05:20 → MTU 12-06 17:45
PROVIDERS: ADMIT General Practice; ATTEND General Practice
PROC: 0BH17EZ Insertion of Endotracheal Airway into Trachea, Via Natural or Artificial Opening (ICD-10-PCS; principal; 2018-12-01)
PROC: 5A1955Z Respiratory Ventilation, Greater than 96 Consecutive Hours (ICD-10-PCS; 2018-12-01)
PROC: 02HV33Z Insertion of Infusion Device into Superior Vena Cava, Percutaneous Approach (ICD-10-PCS; 2018-12-02)
PROC: B548ZZA Ultrasonography of Superior Vena Cava, Guidance (ICD-10-PCS; 2018-12-02)
DX: A41.9 Sepsis, unspecified organism (principal); J96.01 Acute respiratory failure with hypoxia; K72.00 Acute and subacute hepatic failure without coma; J69.0 Pneumonitis due to inhalation of food and vomit; E43 Unspecified severe protein-calorie malnutrition; J45.901 Unspecified asthma with (acute) exacerbation; E83.39 Other disorders of phosphorus metabolism; E83.42 Hypomagnesemia; R19.7 Diarrhea, unspecified; R74.0 Nonspecific elevation of levels of transaminase and lactic acid dehydrogenase [LDH]; N17.0 Acute kidney failure with tubular necrosis; E89.0 Postprocedural hypothyroidism; F15.10 Other stimulant abuse, uncomplicated; F32.9 Major depressive disorder, single episode, unspecified; D64.9 Anemia, unspecified; E87.6 Hypokalemia; E87.1 Hypo-osmolality and hyponatremia; R65.21 Severe sepsis with septic shock; N39.0 Urinary tract infection, site not specified; Z68.28 Body mass index [BMI] 28.0-28.9, adult; Z90.49 Acquired absence of other specified parts of digestive tract; Z88.1 Allergy status to other antibiotic agents; Z88.2 Allergy status to sulfonamides; Z82.49 Family history of ischemic heart disease and other diseases of the circulatory system; Z91.19 Patient's noncompliance with other medical treatment and regimen; Z78.1 Physical restraint status
CPT/HCPCS: 36415; 36600; 70450; 71045; 71275; 76705; 80048; 80053; 80202; 80305; 81001; 81003; 82009; 82550; 82553; 82803; 82948; 83036; 83605; 83690; 83735; 83874; 83880; 84100; 84134; 84439; 84443; 84484; 85025; 85379; 85610; 85730; 86704; 86706; 86708; 86709; 86803; 87040; 87070; 87081; 87086; 87205; 87340; 87449; 87804; 93005; 94002; 94003; 94640; 96365; 97116; 97530; 99285; C9113; G0482; J0696; J1170; J1630; J1642; J1644; J1885; J1956; J2060; J2250; J2270; J2405; J2543; J2704; J2920; J2930; J3010; J3370; J3475; J3480; J3490; J7030; J7060; J7620; Q0092; Q9967